=== PATIENT | female | born 1965 | race Two or more races ===

== ENCOUNTER 2025-11-07 23:09 | Inpatient (IN) | payer OTHER ==
[~2025-11-07] VITALS: Ht 154.9 cm; Wt 68.6 kg
--- NOTE | 2025-11-07 23:58 | ED.PDOC ---
History of Present Illness HPI Comments 60 year-old female presents to the ED via EMS with a chief complaint of N/V/D, headache, and weakness with hypotension as of today. Patient reports BP of 95/25 prior to ED arrival. Patient states recent stroke on September 13, 2025. Per daughter, patient has maintained a BP in the early 100s throughout the week, until today. There are no further complaints or modifying factors at this time. Patients vitals are stable. REVIEW OF SYSTEMS: General: POS Hypotension, No fever, no chills, or fatigue HEENT: No sore throat, no earache, no congestion, no neck pain. Cardiac: No chest pain. No palpitations. Lungs: No shortness of breath, no cough. GI: POS nausea, POS vomiting, POS diarrhea, no constipation, no abdominal pain : No dysuria, frequency, or urgency. No hematuria. Musculoskeletal: No joint pain , no joint swelling, no extremity edema. Skin: No rash, no itching. Neuro: POS headache, no dizziness, no weakness (And as sated in HPI) PHYSICAL EXAM: General: Awake, alert and oriented. No acute distress. Skin: Skin in warm, dry and intact. Appropriate color for ethnicity. HEENT: The head is normocephalic and atraumatic. Conjunctivae are clear without exudates or hemorrhage. Sclera is non-icteric. Eyelids are normal in appearance without swelling or lesions. Oral mucosa is pink and moist Neck: The neck is supple with normal range of motion. No JVD. Cardiac: Heart rate and rhythm are normal. No murmurs, gallops, or rubs are auscultated. Respiratory: No signs of respiratory distress. Lung sounds are clear in all lobes bilaterally without rales, rhonchi, or wheezes. Abdominal: Abdomen is soft, non-tender without distention, guarding or rigidity. Bowel sounds are present and normoactive in all four quadrants. Extremities: Lower extremities without edema. Neurological: The patient is awake, alert and oriented to person, place, and time with normal speech. Speech is clear. There is no facial asymmetry. Psychiatric: Appropriate mood and affect. Good judgement and insight. Time Seen by MD: 23:45 Reviewed Notes: Personal Development Mentor Notes, Medications, Allergies Allergies: Coded Allergies: NO KNOWN ALLERGIES (Unverified , 11/08/25) Information Source: Patient, Relative (Child), Emergency Med Personnel Mode of Arrival: EMS Severity: Moderate Timing: Hours Duration: Since onset Past Medical History PAST MEDICAL HISTORY: Anemia, CVA, Hypotension Past Medical History (Other): Cirrhosis Surgical History: Denies all surgeries Family History Family History: Reviewed,noncontributory to illness, No family hx of Cancer, No family hx of DM, No family hx of Heart juliana, No family hx of HTN, No family hx ofKidney juliana, No family hx of Liver juliana, No family hx of Lung juliana, No family hx of Stroke Social History Smoker: Non-Smoker Alcohol: Denies ETOH Use Drugs: Denies Drug Use Lives In: Home Was a procedure done? Was a procedure done?: No Differential Dx Considerations may include: Differential diagnoses considered include but are not limited to temporal arteritis, acute angle closure glaucoma, encephalitis, bacterial meningitis, carbon monoxide poisoning, posttraumatic headache, SAH, subdural hematoma, cervical artery dissection, venous sinus thrombosis, CVA, migraine headache, cluster headache, tension headache, TMJ disorder, frontal sinusitis, cervical spondylosis, intracranial mass, pituitary apoplexy. X-Ray, Labs, Meds, VS Vital Signs Date Time Temp Pulse Resp B/P (MAP) Pulse Ox O2 Delivery O2 Flow Rate FiO2 11/08/25 03:30 99 12 115/41 (65) 100 11/08/25 03:15 96 12 123/49 (73) 100 11/08/25 03:00 107 13 128/51 (76) 100 11/08/25 02:50 124/45 11/08/25 02:45 105 13 124/45 (71) 100 11/08/25 02:30 108 13 122/45 (70) 100 11/08/25 02:15 98 13 119/49 (72) 100 11/08/25 02:00 99 15 114/47 (69) 100 11/08/25 01:50 133/50 11/08/25 01:45 93 15 133/50 (77) 100 11/08/25 01:30 98 15 120/48 (72) 100 11/08/25 01:15 102 15 124/50 (74) 100 11/08/25 01:00 101 17 117/46 (69) 100 11/08/25 00:50 96/39 11/08/25 00:45 101 17 91/34 (53) 100 11/08/25 00:45 91/34 11/08/25 00:40 98/33 11/08/25 00:34 89/30 11/08/25 00:30 100 16 89/30 (49) 96 11/08/25 00:15 96 17 80/28 (45) 96 11/08/25 00:00 87 17 85/21 (42) 98 11/07/25 23:45 98.4 87 14 (47) 96 98.4 11/07/25 23:20 Nasal Cannula* 2 28 11/07/25 23:09 98.1 76 18 82/50 98 98.1 Lab Test 11/08/25 02:40 11/08/25 01:57 11/08/25 01:51 11/08/25 01:45 Range/Units Lactic Acid Level 2.5 *H 0.4-2.0 mmol/L Sodium Level 141 136-145 mmol/L Potassium Level 4.1 3.5-5.1 mmol/L Chloride Level 107 98-107 mmol/L Carbon Dioxide Level 20 20-31 mmol/L Anion Gap 14 5-15 Blood Urea Nitrogen 20 9-23 mg/dL Creatinine 1.61 H 0.550-1.02 mg/dL Glomerular Filtration Rate Calc 36 >90 mL/min BUN/Creatinine Ratio 12.4 10.0-20.0 Serum Glucose 154 H 74-106 mg/dL Calcium Level 8.3 L 8.7-10.4 mg/dL Iron Level 146 50-170 ug/dL Total Iron Binding Capacity 190 L 250-425 ug/dL Percent Iron Saturation 76.8 H 15-50 % Total Bilirubin 2.5 H 0.2-1.0 mg/dL Aspartate Amino Transferase (AST) 59 H 13-40 U/L Alanine Aminotransferase (ALT) 26 7-40 U/L Alkaline Phosphatase 173 H 46-116 U/L Total Protein 7.4 5.7-8.2 g/dL Albumin 2.6 L 3.2-4.8 g/dL Plasma/Serum Blood Alcohol < 3.0 <10 mg/dL Prothrombin Time 16.5 H 9.3-11.8 sec Prothrombin Time INR 1.63 H 0.9-1.15 Urine Color Light-yellow Yellow Urine Clarity Turbid H Clear Urine pH 6.5 5.0-9.0 Urine Specific [place] 1.007 1.001-1.035 Urine Protein Negative Negative Urine Ketones Negative Negative Urine Blood Negative Negative /uL Urine Nitrite Negative Negative Urine Bilirubin Negative Negative Urine Urobilinogen Normal Negative mg/dL Urine Leukocyte Esterase 2+ Negative /uL Urine RBC None seen 0 - 4 /hpf Urine Microscopic WBC 13 H 0-5 /HPF Urine Squamous Epithelial Cells Few <5 /hpf Urine Bacteria Few H None Seen /hpf Urine Glucose Normal Normal mg/dL Urine Opiates Screen Neg NEGATIVE Urine Fentanyl Screen Neg NEGATIVE Urine Barbiturates Screen Neg NEGATIVE Urine Phencyclidine Screen Neg NEGATIVE Urine Amphetamines Screen Neg NEGATIVE Urine Benzodiazepines Screen Neg NEGATIVE Urine Cocaine Screen Neg NEGATIVE Urine Cannabinoids Screen Neg NEGATIVE Test 11/08/25 00:25 11/07/25 23:29 Range/Units White Blood Count 10.3 4.4-10.8 10^3/uL Red Blood Count 1.59 L 4.0-5.20 10^6/uL Hemoglobin 6.0 *L 12.2-16.2 g/dL Hematocrit 17.8 L 36.0-46.0 % Mean Corpuscular Volume 112.0 H 80.0-100.0 fL Mean Corpuscular Hemoglobin 38.0 H 28.0-32.0 pg Mean Corpuscular Hemoglobin Concent 33.9 32.0-36.0 g/dL Red Cell Distribution Width 15.5 H 11.8-14.3 % Platelet Count 79 L 140-450 10^3/uL Mean Platelet Volume 9.9 6.9-10.8 fL Neutrophils (%) (Auto) 78.0 37.0-80.0 % Lymphocytes (%) (Auto) 11.4 10.0-50.0 % Monocytes (%) (Auto) 9.7 0.0-12.0 % Eosinophils (%) (Auto) 0.3 0.0-7.0 % Basophils (%) (Auto) 0.6 0.0-2.0 % Neutrophils # (Auto) 8.0 1.6-8.6 10 ^3/uL Lymphocytes # (Auto) 1.2 0.4-5.4 10 ^3/uL Monocytes # (Auto) 1.0 0-1.3 10 ^3/uL Eosinophils # (Auto) 0 0-0.8 10 ^3/uL Basophils # (Auto) 0.1 0-0.2 10 ^3/uL Nucleated Red Blood Cells 0.0 % Lactic Acid Level 4.8 *H 0.4-2.0 mmol/L Troponin I High Sensitivity 9 </=34 ng/L POC Glucose 137 H 70-106 mg/dl Microbiology Date/Time Source Procedure Growth Status 11/08/25 00:33 Blood Blood Culture - Preliminary NO GROWTH AFTER 24 HOURS OF INCUBATION. Resulted 11/08/25 00:25 Blood Blood Culture - Preliminary NO GROWTH AFTER 24 HOURS OF INCUBATION. Resulted Time of 1ST Reevaluation: 23:50 Reevaluation 1ST: Unchanged Patient Education/Counseling: Need For Follow Up Family Education/Counseling: No Family Present SEPSIS Sepsis Screen Physician Orders Chest Xray 1 View (11/07/25 23:55) Head Without Contrast (11/07/25 23:55) Blood Culture (11/07/25 23:55) Norepinephrine 8 Mg/250ml Kit (Levophed) (11/08/25 00:15) Communication Order (11/08/25 00:34) Stool Occult Blood (11/08/25 01:04) Vital Signs Date Time Temp Pulse Resp B/P (MAP) Pulse Ox O2 Delivery O2 Flow Rate FiO2 11/08/25 03:30 99 12 115/41 (65) 100 11/08/25 03:15 96 12 123/49 (73) 100 11/08/25 03:00 107 13 128/51 (76) 100 11/08/25 02:50 124/45 11/08/25 02:45 105 13 124/45 (71) 100 11/08/25 02:30 108 13 122/45 (70) 100 11/08/25 02:15 98 13 119/49 (72) 100 11/08/25 02:00 99 15 114/47 (69) 100 11/08/25 01:50 133/50 11/08/25 01:45 93 15 133/50 (77) 100 11/08/25 01:30 98 15 120/48 (72) 100 11/08/25 01:15 102 15 124/50 (74) 100 11/08/25 01:00 101 17 117/46 (69) 100 11/08/25 00:50 96/39 11/08/25 00:45 101 17 91/34 (53) 100 11/08/25 00:45 91/34 11/08/25 00:40 98/33 11/08/25 00:34 89/30 11/08/25 00:30 100 16 89/30 (49) 96 11/08/25 00:15 96 17 80/28 (45) 96 11/08/25 00:00 87 17 85/21 (42) 98 11/07/25 23:45 98.4 87 14 93/25 (47) 96 98.4 11/07/25 23:20 Nasal Cannula* 2 28 11/07/25 23:09 98.1 76 18 82/50 98 98.1 Laboratory Tests Test 11/08/25 00:25 11/08/25 02:40 Lactic Acid Level 4.8 mmol/L (0.4-2.0) *H 2.5 mmol/L (0.4-2.0) *H White Blood Count 10.3 10^3/uL (4.4-10.8) Departure 1 Departure Time of Disposition: 02:45 Impression: Primary Impression: Severe anemia Additional Impressions: Hypotension Cirrhosis Disposition: ADMITTED INPATIENT Condition: Stable Comments Patient admitted to hospitalist service for further treatment, evaluation and monitoring. Critical Care Note Critical Care Time?: No Stability Stability form required: No Heart Score Heart Score: Heart Score Response (Comments) Value History N/A 0 EKG N/A 0 Age N/A 0 Risk Factors N/A 0 Troponin N/A 0 Total 0 I personally scribed for ANNE MARIE NAVA MD ([email or web address]) on 11/07/25 at 23:58. Electronically submitted by Kaylin Owen ([email or web address]). ANNE MARIE NAVA MD Nov 07, 2025 23:58
[2025-11-08] MEDS: SODIUM CHLORIDE 0.9% 1,000 ML IV ONE ×2 (00:09→00:21)
[2025-11-08] MEDS: NAPROXEN 500 MG TAB PO ONE (00:22)
[2025-11-08] MEDS: NOREPINEPHRINE 8 MG/250ML KIT 250 ML IV SCH (00:34)
[2025-11-08 00:53] LABS: Nucleated Red Blood Cells % 0.0 %
[2025-11-08 00:55] LABS: Hematocrit 17.8 % (36.0-46.0); Mean Corpuscular Hemoglobin 38.0 pg (28.0-32.0); Mean Corpuscular Volume 112.0 fL (80.0-100.0)
[2025-11-08 01:02] LABS: Hemoglobin 6.0 g/dL (12.2-16.2)
[2025-11-08 01:20] LABS: Lactic Acid w/Reflex 4.8 mmol/L (0.4-2.0)
[2025-11-08] MEDS: VANCOMYCIN 1GM/250ML KIT 250 ML IV ONE (02:16)
[2025-11-08 02:27] LABS: Urine Protein, UAD Negative (Negative)
[2025-11-08 02:36] LABS: INR 1.63 (0.9-1.15); Prothrombin Time 16.5 sec (9.3-11.8)
--- NOTE | 2025-11-08 02:50 | DVH ---
CHEST RADIOGRAPH INDICATION: Shortness of breath TECHNIQUE: Single frontal view of the chest was obtained COMPARISON: None FINDINGS: Lines and Tubes: None Lungs: Clear Pleura: No effusion. No pneumothorax. Cardiomediastinal contours: Unremarkable Bones: Unremarkable IMPRESSION: 1. No acute disease.
--- NOTE | 2025-11-08 03:20 | DVH ---
EXAM: CT HEAD WITHOUT CONTRAST INDICATION: Headache TECHNIQUE: CT of the head without intravenous contrast. Radiation Dose : 1. Head: CT Dose: CTDI volume is 50.83 mGy. Dose-length product is 814.97 mGy*cm The dose indicators for CT are the volume Computed Tomography (CT) Dose Index (CTDIvol) and the Dose Length Product (DLP), and are measured in units of mGy and mGy-cm, respectively. These indicators are not patient dose, but values generated from the CT scanner acquisition factors. The report includes radiation exposure data for exposures received during this examination. COMPARISON: None FINDINGS: There is no evidence of acute intracranial hemorrhage, extra-axial collection, mass effect, midline shift, herniation or hydrocephalus. The ventricles, sulci and cisterns are age appropriate. The kelly-white differentiation is intact. Patchy periventricular and subcortical white matter hypoattenuation is nonspecific but may be related to small vessel ischemic disease. The visualized paranasal sinuses and mastoid air cells are clear. The surrounding soft tissues and osseous structures are unremarkable. IMPRESSION: 1. No acute intracranial abnormality. Radiation optimization: All CT scans at this facility use at least one of these dose optimization techniques: automated exposure control mA and/or kV adjustment per patient size (includes targeted exams where dose is matched to clinical indication) or iterative reconstruction.
[2025-11-08 03:35] LABS: Barbiturate Scree,Urine Neg (NEGATIVE); Benzodiazephine Screen, Urine Neg (NEGATIVE); Cannabinoid Screen, Urine Neg (NEGATIVE); Cocaine Screen, Urine Neg (NEGATIVE); Opiate Scree,Urine Neg (NEGATIVE); Phencyclidine Screen, Urine Neg (NEGATIVE)
[2025-11-08] MEDS ORDERED: ONDANSETRON HCL 4 MG/2 ML VIAL IV PRN (03:45)
[2025-11-08] MEDS ORDERED: MORPHINE SULFATE INJ 2 MG/ml SYRG IV PRN (03:45)
[2025-11-08] MEDS ORDERED: VANCOMYCIN PER PHARMACY 0 MG IV SCH (03:45)
[2025-11-08] MEDS ORDERED: NITROGLYCERIN 0.4 MG SL TAB SL PRN (03:45)
[2025-11-08] MEDS ORDERED: HYDROcodone-ACET 5/325MG TAB PO PRN (03:45)
[2025-11-08 03:58] LABS: Amphetamine Screen, Urine Neg (NEGATIVE)
[2025-11-08 04:15] VITALS: BP 120/50; PULSE 104; RESP 14; TEMP 98.4
[2025-11-08 04:35] VITALS: BP 118/53; PULSE 102; RESP 15; TEMP 98.7
--- NOTE | 2025-11-08 04:43 | DVHHP2 ---
History of Present Illness Reason for Visit: Hypotension History of Present Illness 60-year-old female presents for evaluation of hypertension. Patient reports developing a headache with generalized weakness today. She reports her blood pressure readings being in the 60s. She states having a stroke two months ago and subsequently she developed hypotension, but she normally has a baseline blood pressure in the 90s to low 100s. She also reports a history of anemia. Denies melena or hematuria. She does report burning with the urination and occasional chills. Past Medical History CVA, anemia, hypotension, liver cirrhosis Past Surgical History Denies Family History Noncontributory Smoke: Quit ALCOHOL: none (Quit drinking two months ago) Drugs: None Lives: with Family Review of Systems Review of Systems Review of systems are currently negative otherwise addressed in HPI. Allergies: Coded Allergies: NO KNOWN ALLERGIES (Unverified , 11/08/25) Medications Current Medications Medications Dose Ordered Sig/Johnathon Route Start Time Stop Time Status Last Admin Dose Admin Norepinephrine Bitartrate 250 ml @ 3.75 mls/hr Q24H IV 11/08/25 00:15 11/08/25 00:34 3.75 MLS/HR Cefepime HCl 50 ml @ 12.5 mls/hr Q12HR IV 11/08/25 10:00 UNV Vancomycin HCl 0 ml @ 0 mls/hr PER PHARMACY IV 11/08/25 03:45 UNV Acetaminophen/ Hydrocodone Bitart 1 tab Q4HP PRN PO 11/08/25 03:45 Ondansetron HCl 4 mg Q4HP PRN IV 11/08/25 03:45 Acetaminophen 650 mg Q6HP PRN PO 11/08/25 03:45 Nitroglycerin 0.4 mg Q5MINP PRN SL 11/08/25 03:45 Morphine Sulfate 2 mg Q30M PRN IV 11/08/25 03:45 Exam Vital Signs Vital Signs Date Time Temp Pulse Resp B/P (MAP) Pulse Ox O2 Delivery O2 Flow Rate FiO2 11/08/25 03:50 120/42 11/08/25 01:15 102 15 100 11/07/25 23:45 98.4 98.4 11/07/25 23:20 Nasal Cannula* 2 28 Exam Gen: 60-year-old female in mild distress Skin: Warm, dry, normal color and texture, no rash. HEENT: Normocephalic atraumatic, mucous membranes moist and pink. Neck: Cervical and supraclavicular nodes normal without enlargement, trachea is midline, thyroid gland is normal without masses. Pulmonary: Clear to auscultation and percussion bilaterally. Cardiac: Regular rate and rhythm. No murmur Abdomen: Soft, nontender, nondistended, bowel sounds present all 4 quadrants, no guarding, no rigidity, no organomegaly. Extremities: No cyanosis, clubbing, no edema Neuro: Cranial nerves II through XII grossly intact, normal affect and speech, no focal motor deficits. Labs/Xrays ORDERING PHYSICIAN: ANNE MARIE NAVA MD PROCEDURE(s): CXR1 - CHEST XRAY 1 VIEW REASON: Shortness of breath ORDER NUMBER(s): [id number], ACCESSION NUMBER(s): [id number] CHEST RADIOGRAPH INDICATION: Shortness of breath TECHNIQUE: Single frontal view of the chest was obtained COMPARISON: None FINDINGS: Lines and Tubes: None Lungs: Clear Pleura: No effusion. No pneumothorax. Cardiomediastinal contours: Unremarkable Bones: Unremarkable IMPRESSION: 1. No acute disease. RING PHYSICIAN: ANNE MARIE NAVA MD PROCEDURE(s): HWOCT - HEAD WITHOUT CONTRAST REASON: Headache ORDER NUMBER(s): [id number], ACCESSION NUMBER(s): [id number] EXAM: CT HEAD WITHOUT CONTRAST INDICATION: Headache TECHNIQUE: CT of the head without intravenous contrast. Radiation Dose : 1. Head: CT Dose: CTDI volume is 50.83 mGy. Dose-length product is 814.97 mGy*cm The dose indicators for CT are the volume Computed Tomography (CT) Dose Index (CTDIvol) and the Dose Length Product (DLP), and are measured in units of mGy and mGy-cm, respectively. These indicators are not patient dose, but values generated from the CT scanner acquisition factors. The report includes radiation exposure data for exposures received during this examination. COMPARISON: None FINDINGS: There is no evidence of acute intracranial hemorrhage, extra-axial collection, mass effect, midline shift, herniation or hydrocephalus. The ventricles, sulci and cisterns are age appropriate. The kelly-white differentiation is intact. Patchy periventricular and subcortical white matter hypoattenuation is nonspecific but may be related to small vessel ischemic disease. The visualized paranasal sinuses and mastoid air cells are clear. The surrounding soft tissues and osseous structures are unremarkable. IMPRESSION: 1. No acute intracranial abnormality. Radiation optimization: All CT scans at this facility use at least one of these dose optimization techniques: automated exposure control mA and/or kV adjustment per patient size (includes targeted exams where dose is matched to clinical indication) or iterative reconstruction. Labs Test 11/08/25 02:40 11/08/25 01:57 11/08/25 01:51 11/08/25 01:45 Range/Units Lactic Acid Level 2.5 *H 0.4-2.0 mmol/L Prothrombin Time 16.5 H 9.3-11.8 sec Prothrombin Time INR 1.63 H 0.9-1.15 Urine Color Light-yellow Yellow Urine Clarity Turbid H Clear Urine pH 6.5 5.0-9.0 Urine Specific [place] 1.007 1.001-1.035 Urine Protein Negative Negative Urine Ketones Negative Negative Urine Blood Negative Negative /uL Urine Nitrite Negative Negative Urine Bilirubin Negative Negative Urine Urobilinogen Normal Negative mg/dL Urine Leukocyte Esterase 2+ Negative /uL Urine RBC None seen 0 - 4 /hpf Urine Microscopic WBC 13 H 0-5 /HPF Urine Squamous Epithelial Cells Few <5 /hpf Urine Bacteria Few H None Seen /hpf Urine Glucose Normal Normal mg/dL Urine Opiates Screen Neg NEGATIVE Urine Fentanyl Screen Neg NEGATIVE Urine Barbiturates Screen Neg NEGATIVE Urine Phencyclidine Screen Neg NEGATIVE Urine Amphetamines Screen Neg NEGATIVE Urine Benzodiazepines Screen Neg NEGATIVE Urine Cocaine Screen Neg NEGATIVE Urine Cannabinoids Screen Neg NEGATIVE Test 11/08/25 00:25 11/07/25 23:29 Range/Units White Blood Count 10.3 4.4-10.8 10^3/uL Red Blood Count 1.59 L 4.0-5.20 10^6/uL Hemoglobin 6.0 *L 12.2-16.2 g/dL Hematocrit 17.8 L 36.0-46.0 % Mean Corpuscular Volume 112.0 H 80.0-100.0 fL Mean Corpuscular Hemoglobin 38.0 H 28.0-32.0 pg Mean Corpuscular Hemoglobin Concent 33.9 32.0-36.0 g/dL Red Cell Distribution Width 15.5 H 11.8-14.3 % Platelet Count 79 L 140-450 10^3/uL Mean Platelet Volume 9.9 6.9-10.8 fL Neutrophils (%) (Auto) 78.0 37.0-80.0 % Lymphocytes (%) (Auto) 11.4 10.0-50.0 % Monocytes (%) (Auto) 9.7 0.0-12.0 % Eosinophils (%) (Auto) 0.3 0.0-7.0 % Basophils (%) (Auto) 0.6 0.0-2.0 % Neutrophils # (Auto) 8.0 1.6-8.6 10 ^3/uL Lymphocytes # (Auto) 1.2 0.4-5.4 10 ^3/uL Monocytes # (Auto) 1.0 0-1.3 10 ^3/uL Eosinophils # (Auto) 0 0-0.8 10 ^3/uL Basophils # (Auto) 0.1 0-0.2 10 ^3/uL Nucleated Red Blood Cells 0.0 % Troponin I High Sensitivity 9 </=34 ng/L POC Glucose 137 H 70-106 mg/dl SEPSIS Sepsis Screen Date sepsis recognized/suspect: Nov 07, 2025 Time Sepsis recognized/suspect: 2319 Recent Procedure: No On Antibiotic Therapy: No Respiratory Rate >20: No Heart Rate >90: No Temp<36 C (96.8 F) or >38.3 C: No SBP <90 or MAP <65 mmHG: Yes New Acute Mental Status Change: No Is the patient on CPAP, BIPAP,: No Physician Orders Comprehensive Metabolic Panel (11/07/25 23:55) Chest Xray 1 View (11/07/25 23:55) Head Without Contrast (11/07/25 23:55) Blood Alcohol (11/07/25 23:55) Blood Culture (11/07/25 23:55) Norepinephrine 8 Mg/250ml Kit (Levophed) (11/08/25 00:15) Communication Order (11/08/25 00:34) Stool Occult Blood (11/08/25 01:04) Urine Bacterial Culture (11/08/25 03:44) Cefepime 1gm/50ml (Maxipime 1gm/50ml) (11/08/25 10:00) Vancomycin Per Pharmacy (11/08/25 03:45) Admit (11/08/25 03:44) Hydrocodone-Acet 5/325mg Tab ([place] /32 (11/08/25 03:45) Ondansetron Hcl (Zofran) (11/08/25 03:45) Cardiac Diet-2gna,Lofat,Lochol (11/08/25 Breakfast) Condition: Critical (11/08/25 03:44) Acetaminophen Tablet (Tylenol Tablet) (11/08/25 03:45) Bedrest With Bathroom Privileg (11/08/25 03:44) Nitroglycerin Sublingual (Ntrostat Subli (11/08/25 03:45) Morphine Sulfate Injection (11/08/25 03:45) Stat Ekg For Chest Pain (11/08/25 03:44) Notify Md Of Changes From Base (11/08/25 03:44) Line Installer Trolley For 24 Hours (11/08/25 03:44) Emergency Dysrhythmia Protocol (11/08/25 03:44) Rhythm Strips Once Every Shift (11/08/25 03:44) Oxygen By Nasal Cannula (11/08/25 03:44) Iron Panel (11/08/25 04:38) Vital Signs Date Time Temp Pulse Resp B/P (MAP) Pulse Ox O2 Delivery O2 Flow Rate FiO2 11/08/25 03:50 120/42 11/08/25 02:50 124/45 11/08/25 01:50 133/50 11/08/25 01:15 102 15 124/50 (74) 100 11/08/25 01:00 101 17 117/46 (69) 100 11/08/25 00:50 96/39 11/08/25 00:45 101 17 91/34 (53) 100 11/08/25 00:45 91/34 11/08/25 00:40 98/33 11/08/25 00:34 89/30 11/08/25 00:30 100 16 89/30 (49) 96 11/08/25 00:15 96 17 80/28 (45) 96 11/08/25 00:00 87 17 85/21 (42) 98 11/07/25 23:45 98.4 87 14 93/25 (47) 96 98.4 11/07/25 23:20 Nasal Cannula* 2 28 11/07/25 23:09 98.1 76 18 82/50 98 98.1 Laboratory Tests Test 11/08/25 00:25 11/08/25 02:40 Lactic Acid Level 4.8 mmol/L (0.4-2.0) *H 2.5 mmol/L (0.4-2.0) *H White Blood Count 10.3 10^3/uL (4.4-10.8) Medications Medications Dose Ordered Sig/Johnathon Route Start Time Stop Time Status Last Admin Dose Admin Ceftriaxone Sodium 50 ml @ 100 mls/hr ONCE ONCE IV 11/08/25 01:30 11/08/25 01:59 DC 11/08/25 01:35 100 MLS/HR Naproxen 500 mg ONCE ONCE PO 11/08/25 00:15 11/08/25 00:17 DC 11/08/25 00:22 500 MG Norepinephrine Bitartrate 250 ml @ 3.75 mls/hr Q24H IV 11/08/25 00:15 11/08/25 00:34 3.75 MLS/HR Sodium Chloride 1,000 ml @ 1,000 mls/hr Q1H ONCE IV 11/08/25 00:00 11/08/25 00:59 DC 11/08/25 00:09 1,000 MLS/HR Sodium Chloride 1,000 ml @ 1,000 mls/hr Q1H ONCE IV 11/08/25 00:15 11/08/25 01:14 DC 11/08/25 00:21 1,000 MLS/HR Vancomycin HCl 250 ml @ 250 mls/hr ONCE ONCE IV 11/08/25 01:30 11/08/25 02:29 DC 11/08/25 02:16 250 MLS/HR Assessment/Plan Assessment/Plan Assessment Sepsis Anemia History of CVA Urinary tract infection Plan Admit the patient to ICU to the hospitalist Transfuse 1 unit of packed red cells Cefepime/vancomycin Blood cultures pending Continue treatment per orders Plan discussed with: Patient My Orders Orders - MARINE ISAACS AGACNP Procedure Category Date Status Time Urine Bacterial [place] 11/08/25 In Process Culture 03:44 Cefepime 1gm/50ml [facility] 11/08/25 Pending (Maxipime 1gm/50ml) 10:00 Vancomycin Per [facility] 11/08/25 Pending Pharmacy 03:45 Admit ADMIT 11/08/25 Transmitted 03:44 Hydrocodone-Acet [facility] 11/08/25 In Process 5/325mg Tab ([place] 03:45 Ondansetron Hcl [facility] 11/08/25 In Process (Zofran) 03:45 Cardiac DIET 11/08/25 Transmitted Diet-2gna,Lofat,Lochol Breakfast Condition: Critical [place] 11/08/25 In Process 03:44 Acetaminophen Tablet [facility] 11/08/25 In Process (Tylenol Tablet) 03:45 Bedrest With Bathroom [facility] 11/08/25 In Process Privileg 03:44 Nitroglycerin [facility] 11/08/25 In Process Sublingual (Ntrostat 03:45 Morphine Sulfate [facility] 11/08/25 In Process Injection 03:45 Stat Ekg For Chest [facility] 11/08/25 In Process Pain 03:44 Notify Md Of Changes [facility] 11/08/25 In Process From Base 03:44 Line Installer Trolley For [facility] 11/08/25 In Process 24 Hours 03:44 Emergency Dysrhythmia [facility] 11/08/25 In Process Protocol 03:44 Rhythm Strips Once [facility] 11/08/25 In Process Every Shift 03:44 Oxygen By Nasal RT 11/08/25 Transmitted Cannula 03:44 Iron Panel LAB 11/08/25 Transmitted 04:38 Date of Service: Nov 08, 2025 Billing Provider: MARINE ISAACS Common Visit Codes: [id number] CARE 30-74 MIN MARINE ISAACS Nov 08, 2025 04:43
[2025-11-08 04:46] LABS: Alanine Aminotransferase 26 U/L (7-40); Anion Gap 14 (5-15); BUN/Creatinine Ratio 12.4 (10.0-20.0); Blood Urea Nitrogen 20 mg/dL (9-23); Chloride 107 mmol/L (98-107); Potassium 4.1 mmol/L (3.5-5.1); Sodium 141 mmol/L (136-145); Total Protein 7.4 g/dL (5.7-8.2)
[2025-11-08 04:50] LABS: Albumin 2.6 g/dL (3.2-4.8); Alkaline Phosphatase 173 U/L (46-116); Bilirubin, Total 2.5 mg/dL (0.2-1.0); Calcium 8.3 mg/dL (8.7-10.4); Carbon Dioxide 20 mmol/L (20-31); Glucose 154 mg/dL (74-106)
[2025-11-08] MEDS: CEFEPIME 1GM/50ML 50 ML IV ONE (05:22)
[2025-11-08 06:09] LABS: Iron 146.0 ug/dL (50-170)
[2025-11-08 06:21] LABS: Total Iron Binding Capacity 190.0 ug/dL (250-425)
[2025-11-08 06:36] VITALS: BP 108/42; PULSE 77; RESP 14; TEMP 98.1
[2025-11-08 07:50] VITALS: PULSE 84; RESP 12; O2SAT 98
[2025-11-08 10:11] LABS: Hematocrit 32.2 % (36.0-46.0); Hemoglobin 10.9 g/dL (12.2-16.2)
[2025-11-08 11:07] LABS: Ferritin 206.9 ng/mL (10-291)
[2025-11-08] MEDS: CEFEPIME 1GM/50ML 50 ML IV SCH (11:10)
[2025-11-08 13:09] LABS: Hepatitis B Surface Antigen Negative (Negative); Hepatitis C Antibody Negative (Negative)
--- NOTE | 2025-11-08 13:21 | DVHPNRES ---
Progress Note Date Seen: Nov 08, 2025 Resident Creating Document: SHELBI ALBERTS RESIDENT Medical Necessity Reason Pt with a Central, PICC or Fol: No Subjective Review of Systems This is a 60-year-old female with past medical history of hemorrhagic stroke in August 2025, liver cirrhosis, anemia, presented to the ER with chief complain of dizziness, vomiting, hypotension since 1 day. Patient is a [place]an-speaking female, utilized undercoater for history taking. The patient started complaining of dizziness, described as "everything around me was spinning, accompanied with decreased/division. She was diagnosed with stroke in August this year and was concerned about a similar episode Patient's daughter measured her blood pressure during the episode, which was low. She also complained of vomiting and diarrhea with 1 day onset, associated with burning abdominal pain. She reported vomiting hourly, without hematemesis. Patient initially denied having diarrhea but on further probing she reported 4 episodes of diarrhea. Stools are described as soft, complained of small amount of blood seen on stool and on the toilet paper. She also reported vague history of dysuria and burning micturition 4 days ago. Patient is A&O x4 but somewhat of a poor historian. She denies loss of consciousness, weakness, fever, chills. Patient has significant past medical history of liver cirrhosis, currently not following up with a specialist due to insurance issues. She underwent a colonoscopy in the past, according to the patient the colonoscopy did not show acute abnormality. Patient had stroke in August 2025, with some residual generalized weakness. Patient denies recent travel, history of cancer, hepatitis. History corroborated with daughter, who added that the patient has recurrent UTIs in the past and her last colonoscopy was more than 2 years back. Patient's vitals show tachycardia and hypotension on arrival. Her labs revealed macrocytic anemia, thrombocytopenia, albumin. Labs were significant for elevated total bilirubin, AST, ALP, creatinine and lactic acid. Coagulation profile showed elevated PT, INR. Her urine analysis was positive for UTI. Toxicology screen and Hepatitis panel came out negative. CT head shows no acute abnormality. Previous hospitalization: August 2025 in a hospital in [facility] for stroke PMHx: Hemorrhagic stroke, liver cirrhosis, anemia PSHx: None reported Family history: Multiple family members with diabetes mellitus Social history: Quit alcohol (used for 30 years) in August 2025, reported using 5 beers occasionally (consumed weekly/monthly), never smoker, denies drug use. Lives in daughter. Uses walker for ambulation since August this year Home medication: Famotidine, furosemide, spironolactone, MiraLax, iron. Medication list obtained from daughter ([place] [phone]). Allergic history: No reported allergies ROS: Constitutional: Denies weight loss, fever and chills. HEENT: Denies changes in vision and hearing. Respiratory: Denies shortness of breath and cough Cardiovascular: Denies chest discomfort or palpitations GI: Diarrhea, vomiting, 1 episode of bloody stools. Denies abdominal pain, nausea. : Dysuria and urinary frequency. Musculoskeletal: Denies myalgias and joint pain Skin: Denies rash and pruritus. Neurological: Dizziness. Denies headache, vision or hearing problems [id number]: Patient was examined at bedside. Patient reports improvement of symptoms. She is requiring vasopressor support intermittently to maintain her blood pressure. He received 1 bag of packed RBCs for hemoglobin of 6, monitoring H&H. In context of patient's cirrhosis, we will obtain a CT abdomen and consult GI. Objective vital signs Vital Sign Date Time Temp Pulse Resp B/P (MAP) Pulse Ox O2 Delivery O2 Flow Rate FiO2 11/08/25 12:16 73 12 93/31 (51) 98 11/08/25 10:18 99.0 99.0 11/08/25 07:50 Room Air* 1 N/A Nasal Cannula* Total Intake and Output 11/07/25 11/07/25 11/08/25 15:00 23:00 07:00 Intake Total 950 ml Balance 950 ml medications Current Medications Medications Dose Ordered Sig/Johnathon Route Start Time Stop Time Status Last Admin Dose Admin Norepinephrine Bitartrate 250 ml @ 3.75 mls/hr Q24H IV 11/08/25 00:15 11/08/25 00:34 3.75 MLS/HR Cefepime HCl 50 ml @ 12.5 mls/hr Q12HR IV 11/08/25 10:00 11/08/25 11:10 12.5 MLS/HR Vancomycin HCl 0 ml @ 0 mls/hr PER PHARMACY IV 11/08/25 03:45 Acetaminophen/ Hydrocodone Bitart 1 tab Q4HP PRN PO 11/08/25 03:45 Ondansetron HCl 4 mg Q4HP PRN IV 11/08/25 03:45 Acetaminophen 650 mg Q6HP PRN PO 11/08/25 03:45 Nitroglycerin 0.4 mg Q5MINP PRN SL 11/08/25 03:45 Morphine Sulfate 2 mg Q30M PRN IV 11/08/25 03:45 Examination General: Patient alert and oriented in person, place and time. Patient following commands. HEENT: Scleral icterus. Normocephalic, atraumatic, moist mucous membranes Respiratory/pulmonary: Clear lungs bilaterally, vesicular murmurs present in almost all lung yao, no associated crackles or wheezes. Cardiovascular: Tachycardia. Normal heart sounds S1 and S2 with no associated murmurs Abdomen: Hepatomegaly. Abdomen nondistended, there is no pain to palpation in any of the abdominal quadrants, no palpable masses. Extremities: There is no peripheral edema present at the lower extremities. Skin: No rashes or pruritus, there is no sacral edema present at this time. Neurological: Intact cranial nerves with no focal neurologic deficits, normal motor and sensory strength. laboratory and microbiology Laboratory Tests 11/08/25 10:00 11/08/25 01:57 11/08/25 00:25 Test 11/08/25 01:57 Range/Units Serum Glucose 154 H 74-106 mg/dL Problem List/Assessment/Plan Problem List/Assessment/Plan Neurology # History of hemorrhagic shock CT head negative for acute abnormality Cardiovascular # Hypovolemic shock # GI hemorrhage, possible Blood pressure maintained on Levophed Received 1 bag of pRBCs Holding off DVT prophylaxis with Lovenox, SCD ordered GI consulted for possible EGD SOB ordered Monitor H&H for possible transfusion IV Protonix b.i.d., Carafate 1 g p.o. q.i.d. Gastrointestinal # GI hemorrhage, possible # Possible variceal bleed Blood pressure maintained on Levophed Received 1 bag of pRBCs Holding off DVT prophylaxis with Lovenox, SCD ordered GI consulted, recommended EGD on Thursday SOB ordered CT abdomen shows cirrhosis with sequela of portal hypertension including upper abdominal varices. Diffuse gallbladder wall thickening without significant distention with possible cholelithiasis. Monitor H&H for possible transfusion IV Protonix b.i.d., Carafate 1 g p.o. q.i.d. # Acute infectious colitis possible Started on IV Flagyl q.8 # Liver cirrhosis # Portal hypertension, possible # Liver cirrhosis secondary to alcohol and fatty liver disease # Cholelithiasis MELD score 20. Child Knowles score 8 Ammonia levels WNL Genitourinary # Possible septic shock due to Complicated UTI U/A: positive for UTI Blood culture, urine culture ordered Continue IV cefepime Low salt diet, maintain hydration Repeat BMP Infectious disease # Possible septic shock due to Complicated UTI # Acute gastroenteritis, possible Started on IV Flagyl q.8 Continue IV cefepime Hematology/oncology # Macrocytic anemia, due to liver disease # Thrombocytopenia Continue CBC monitoring Peptic ulcer prophylaxis: Protonix DVT prophylaxis: SCD Critical care time 61 minutes excluding procedure. Code status discussed greater than 20 minutes: Full CODE STATUS. Family at bedside explained about the condition of the patient Plan discussed with Dr. Ohara Plan discussed with: Patient, Daughter, Other (nurses) My Orders My Orders Orders - SHELBI ALBERTS Procedure Category Date Status Time Acute Hepatitis Panel LAB 11/08/25 In Process 09:57 CC Plasma Assessment Blood Product Administration S: 0420 Date of Service: Nov 08, 2025 Billing Provider: MARINE OHARA MD Common Visit Codes: 57039-SKERLD[facility] CARE 30-74 MIN SHELBI ALBERTS Nov 08, 2025 13:21 MARINE OHARA MD Nov 09, 2025 11:58
[2025-11-08] MEDS: PANTOPRAZOLE 40 MG/10 ML VIAL INJ IV ONE (13:26)
[2025-11-08 14:48] LABS: Hematocrit 32.7 % (36.0-46.0); Hemoglobin 11.2 g/dL (12.2-16.2)
--- NOTE | 2025-11-08 15:53 | DVH ---
EXAM: CT CT AB PEL WO CON-NO ORAL OR IV HISTORY: liver cirrhosis r/o structural abdominal d/o Comparison Study: None Exam Date: 11/08/2025 02:49 PM Radiation Dose Information: CT Dose: CTDI volume is 8.6 mGy. Dose-length product is 437 mGy*cm TECHNIQUE: Multidetector CT of the abdomen and pelvis was performed. Imaging was performed without IV contrast. Axial, coronal and sagittal multiplanar reformats were obtained from the axial data set by the technologist. FINDINGS: Lack of intravenous contrast compromises evaluation of perfusion and for isodense lesions. Lower chest: Bibasilar atelectasis/scarring. Liver: Diffusely nodular in contour Biliary system: Diffuse gallbladder wall thickening without significant distention. Possible Underlying stones. Spleen: Unremarkable Pancreas: Unremarkable. Adrenals: Unremarkable. Kidneys and ureters: No hydronephrosis Bowel: No obstruction. Mild hyperdensity in the calices may represnt early medullary nephrocalcinosis. Bladder: Unremarkable Reproductive organs: No abnormal mass. Lymph nodes: Unremarkable. Peritoneum: Unremarkable Vessels: Patency not evaluated on this noncontrast study. Enlarged gastroesophageal and upper abdominal varices. Bones and soft tissue: No aggressive osseous lesion IMPRESSION: Cirrhosis with sequela of portal hypertension including upper abdominal varices. No significant ascites. Diffuse gallbladder wall thickening without significant distention with possible cholelithiasis. This is favored to be reactive. If there is concern for acute cholecystitis, HIDA scan can be obtained for further evaluation.
--- NOTE | 2025-11-08 16:27 | DVHCONRES ---
Date Seen: Nov 08, 2025 Resident Creating Document: SUZANNA SCOTT RESIDENT Reason for Consultation Evaluation of possible gastrointestinal bleeding History of Present Illness 60-year-old female with liver cirrhosis secondary to alcohol use and fatty liver disease, history of cerebrovascular accident in August 2025, and chronic anemia, admitted for hypotension associated with headache, nausea, vomiting, and diarrhea. GI was consulted due to concern for possible gastrointestinal bleeding in the setting of severe anemia. The patient is a poor historian and is unable to recall details of a prior EGD performed in August 2025, reportedly without acute findings. She reports intermittent blood on wiping with known history of hemorrhoids. She quit alcohol use in August 2025. On admission, she required intermittent vasopressor support and is currently fully alert and oriented. PMHx Liver cirrhosis secondary to alcohol use and metabolic-associated fatty liver disease, cerebrovascular accident August 2025, chronic anemia Allergies Not documented Social History Former alcohol use, quit August 2025 CBC: Hb 6 --> 10.9 --> 11.2 CMP: Total bilirubin 2.5, alkaline phosphatase 173, albumin 2.6, sodium 141 Coagulation: PT 16.5, INR 1.53 Vitamin B12: Normal Serologies: Hepatitis B negative Toxicology: Negative, no alcohol detected Blood cultures: Pending CT abdomen/pelvis: Cirrhosis with sequelae of portal hypertension and upper abdominal varices, gastric wall thickening without significant distension, possible cholelithiasis Allergies: Coded Allergies: NO KNOWN ALLERGIES (Unverified , 11/08/25) Current Medications Current Medications Medications (Trade) Dose Ordered Sig/Johnathon Route PRN Reason Start Time Stop Time Status Last Admin Norepinephrine Bitartrate 250 ml @ 3.75 mls/hr Q24H IV 11/08/25 00:15 11/08/25 00:34 Cefepime HCl 50 ml @ 12.5 mls/hr Q12HR IV 11/08/25 10:00 11/08/25 11:10 Vancomycin HCl 0 ml @ 0 mls/hr PER PHARMACY IV 11/08/25 03:45 11/08/25 14:14 DC Acetaminophen/ Hydrocodone Bitart ([place] 5/325MG Tab) 1 tab Q4HP PRN PO MODERATE PAIN (4-6 PAIN SCALE) 11/08/25 03:45 Ondansetron HCl (Zofran) 4 mg Q4HP PRN IV NAUSEA / VOMITING 11/08/25 03:45 Acetaminophen (Tylenol Tablet) 650 mg Q6HP PRN PO PAIN SCALE 1-3 OR TEMP>100.4 11/08/25 03:45 Nitroglycerin (Ntrostat Sublingual) 0.4 mg Q5MINP PRN SL FOR CHEST PAIN 11/08/25 03:45 Morphine Sulfate 2 mg Q30M PRN IV FOR CHEST PAIN 11/08/25 03:45 Pantoprazole Sodium (Protonix) 40 mg DAILY IV 11/09/25 10:00 Vital Signs Vital Signs Date Time Temp Pulse Resp B/P (MAP) Pulse Ox O2 Delivery O2 Flow Rate FiO2 11/08/25 14:30 86 11 107/41 (63) 97 11/08/25 14:15 97.7 97.7 11/08/25 07:50 Room Air* 1 N/A Nasal Cannula* Labs/Diagnostic Data Labs Test 11/08/25 14:43 11/08/25 11:05 11/08/25 10:11 11/08/25 10:00 Range/Units Hemoglobin 11.2 L 12.2-16.2 g/dL Hematocrit 32.7 L 36.0-46.0 % Lactic Acid Level 1.2 0.4-2.0 mmol/L Ammonia 28 11-32 umol/L Ferritin 206.9 10-291 ng/mL Vitamin B12 Level 1349 H 211-911 pg/mL Folic Acid 21.57 >5.38 ng/mL Hepatitis A IgM Antibody Negative Hepatitis B Surface Antigen Negative Negative Hepatitis B Core IgM Antibody Negative Negative Hepatitis C Antibody Negative Negative Test 11/08/25 01:57 11/08/25 01:51 11/08/25 01:45 11/08/25 00:25 Range/Units Sodium Level 141 136-145 mmol/L Potassium Level 4.1 3.5-5.1 mmol/L Chloride Level 107 98-107 mmol/L Carbon Dioxide Level 20 20-31 mmol/L Anion Gap 14 5-15 Blood Urea Nitrogen 20 9-23 mg/dL Creatinine 1.61 H 0.550-1.02 mg/dL Glomerular Filtration Rate Calc 36 >90 mL/min BUN/Creatinine Ratio 12.4 10.0-20.0 Serum Glucose 154 H 74-106 mg/dL Calcium Level 8.3 L 8.7-10.4 mg/dL Iron Level 146 50-170 ug/dL Total Iron Binding Capacity 190 L 250-425 ug/dL Percent Iron Saturation 76.8 H 15-50 % Total Bilirubin 2.5 H 0.2-1.0 mg/dL Aspartate Amino Transferase (AST) 59 H 13-40 U/L Alanine Aminotransferase (ALT) 26 7-40 U/L Alkaline Phosphatase 173 H 46-116 U/L Total Protein 7.4 5.7-8.2 g/dL Albumin 2.6 L 3.2-4.8 g/dL Plasma/Serum Blood Alcohol < 3.0 <10 mg/dL Prothrombin Time 16.5 H 9.3-11.8 sec Prothrombin Time INR 1.63 H 0.9-1.15 Urine Color Light-yellow Yellow Urine Clarity Turbid H Clear Urine pH 6.5 5.0-9.0 Urine Specific Kelly 1.007 1.001-1.035 Urine Protein Negative Negative Urine Ketones Negative Negative Urine Blood Negative Negative /uL Urine Nitrite Negative Negative Urine Bilirubin Negative Negative Urine Urobilinogen Normal Negative mg/dL Urine Leukocyte Esterase 2+ Negative /uL Urine RBC None seen 0 - 4 /hpf Urine Microscopic WBC 13 H 0-5 /HPF Urine Squamous Epithelial Cells Few <5 /hpf Urine Bacteria Few H None Seen /hpf Urine Glucose Normal Normal mg/dL Urine Opiates Screen Neg NEGATIVE Urine Fentanyl Screen Neg NEGATIVE Urine Barbiturates Screen Neg NEGATIVE Urine Phencyclidine Screen Neg NEGATIVE Urine Amphetamines Screen Neg NEGATIVE Urine Benzodiazepines Screen Neg NEGATIVE Urine Cocaine Screen Neg NEGATIVE Urine Cannabinoids Screen Neg NEGATIVE White Blood Count 10.3 4.4-10.8 10^3/uL Red Blood Count 1.59 L 4.0-5.20 10^6/uL Mean Corpuscular Volume 112.0 H 80.0-100.0 fL Mean Corpuscular Hemoglobin 38.0 H 28.0-32.0 pg Mean Corpuscular Hemoglobin Concent 33.9 32.0-36.0 g/dL Red Cell Distribution Width 15.5 H 11.8-14.3 % Platelet Count 79 L 140-450 10^3/uL Mean Platelet Volume 9.9 6.9-10.8 fL Neutrophils (%) (Auto) 78.0 37.0-80.0 % Lymphocytes (%) (Auto) 11.4 10.0-50.0 % Monocytes (%) (Auto) 9.7 0.0-12.0 % Eosinophils (%) (Auto) 0.3 0.0-7.0 % Basophils (%) (Auto) 0.6 0.0-2.0 % Neutrophils # (Auto) 8.0 1.6-8.6 10 ^3/uL Lymphocytes # (Auto) 1.2 0.4-5.4 10 ^3/uL Monocytes # (Auto) 1.0 0-1.3 10 ^3/uL Eosinophils # (Auto) 0 0-0.8 10 ^3/uL Basophils # (Auto) 0.1 0-0.2 10 ^3/uL Nucleated Red Blood Cells 0.0 % Troponin I High Sensitivity 9 </=34 ng/L Test 11/07/25 23:29 Range/Units POC Glucose 137 H 70-106 mg/dl Assessment #Gastrointestinal bleeding #Portal hypertension #Upper varices #Possible colitis # Liver cirrhosis secondary to alcohol use and fatty liver disease # Chronic anemia #Cholelithiasis Low sodium diet Suspected upper gastrointestinal source in the setting of cirrhosis, portal hypertension, CT evidence of varices, and severe anemia. Antibiotics: Continue cefepime and vancomycin, added metronidazole Procedures: Plan for EGD on Thursday Transfusion: Maintain hemoglobin >7 g/dL Stool studies ordered Protonix IV BID Sucralfate liquid Vitamin K Syl Discriminant Function 27.8 no need of steroids No need of procedures regarding of cholelithiasis due to preoperative high risk Case discussed with Dr Valencia Plan discussed with: Patient, Other (rn) SUZANNA SCOTT RESIDENT Nov 08, 2025 16:27
[2025-11-08] MEDS: phytonadione 5 MG in SODIUM CHL 0.9% 50 ML IV ONE (17:22)
[2025-11-08] MEDS: SUCRALFATE 1 GM/10 ML ORAL SUSP PO SCH (17:35)
[2025-11-08 20:00] VITALS: PULSE 76; RESP 12; O2SAT 96
[2025-11-08] MEDS: PANTOPRAZOLE 40 MG/10 ML VIAL INJ IV SCH (22:23)
[2025-11-08 23:00] VITALS: BP 110/45; PULSE 78; RESP 14; O2SAT 98
[2025-11-09] VITALS (23 sets, daily range): BP systolic 94–126; BP diastolic 37–60; PULSE 69–100; RESP 9–20; TEMP 98–98.6; O2SAT 94–99
[2025-11-09 05:47] LABS: Hematocrit 31.2 % (36.0-46.0); Hemoglobin 10.7 g/dL (12.2-16.2); Mean Corpuscular Hemoglobin 35.1 pg (28.0-32.0); Mean Corpuscular Volume 102.7 fL (80.0-100.0); Nucleated Red Blood Cells % 0.3 %
[2025-11-09 06:13] LABS: Alanine Aminotransferase 30 U/L (7-40); Anion Gap 10 (5-15); BUN/Creatinine Ratio 9.4 (10.0-20.0); Blood Urea Nitrogen 12 mg/dL (9-23); Carbon Dioxide 22 mmol/L (20-31); Glucose 94 mg/dL (74-106); Potassium 4.0 mmol/L (3.5-5.1); Sodium 141 mmol/L (136-145); Total Protein 6.4 g/dL (5.7-8.2)
[2025-11-09 06:14] LABS: Albumin 2.0 g/dL (3.2-4.8); Alkaline Phosphatase 147 U/L (46-116); Bilirubin, Total 2.8 mg/dL (0.2-1.0); Calcium 8.2 mg/dL (8.7-10.4); Chloride 109 mmol/L (98-107)
[2025-11-09] MEDS ORDERED: PANTOPRAZOLE 40 MG/10 ML VIAL INJ IV SCH (10:00)
--- NOTE | 2025-11-09 10:40 | DVHPN2 ---
Progress Note Date Seen: Nov 09, 2025 Resident Creating Document: SUZANNA SCOTT RESIDENT Medical Necessity Reason Pt with a Central, PICC or Fol: No Subjective Review of Systems 60-year-old female with liver cirrhosis secondary to alcohol use and fatty liver disease, history of cerebrovascular accident in August 2025, and chronic anemia, admitted for hypotension associated with headache, nausea, vomiting, and diarrhea. GI was consulted due to concern for possible gastrointestinal bleeding in the setting of severe anemia. The patient is a poor historian and is unable to recall details of a prior EGD performed in August 2025, reportedly without acute findings. She reports intermittent blood on wiping with known history of hemorrhoids. She quit alcohol use in August 2025. On admission, she required intermittent vasopressor support and is currently fully alert and oriented. PMHx Liver cirrhosis secondary to alcohol use and metabolic-associated fatty liver disease, cerebrovascular accident August 2025, chronic anemia 11/09/25: Today hemoglobin stable, rectal exam performed no rectal bleeding, possible EGD tomorrow keep NPO midnight Objective vital signs Vital Sign Date Time Temp Pulse Resp B/P (MAP) Pulse Ox O2 Delivery O2 Flow Rate FiO2 11/09/25 08:00 76 11/09/25 08:00 12 95 Room Air* 0 21 11/09/25 08:00 98.2 126/52 (76) 98.2 Total Intake and Output 11/08/25 11/08/25 11/09/25 15:00 23:00 07:00 Intake Total 37.5 ml 12.5 ml 450.0 ml Balance 37.5 ml 12.5 ml 450.0 ml medications Current Medications Medications Dose Ordered Sig/Johnathon Route Start Time Stop Time Status Last Admin Dose Admin Norepinephrine Bitartrate 250 ml @ 3.75 mls/hr Q24H IV 11/08/25 00:15 11/08/25 00:34 3.75 MLS/HR Cefepime HCl 50 ml @ 12.5 mls/hr Q12HR IV 11/08/25 10:00 11/09/25 07:44 12.5 MLS/HR Acetaminophen/ Hydrocodone Bitart 1 tab Q4HP PRN PO 11/08/25 03:45 Ondansetron HCl 4 mg Q4HP PRN IV 11/08/25 03:45 Acetaminophen 650 mg Q6HP PRN PO 11/08/25 03:45 Nitroglycerin 0.4 mg Q5MINP PRN SL 11/08/25 03:45 Morphine Sulfate 2 mg Q30M PRN IV 11/08/25 03:45 Pantoprazole Sodium 40 mg BID IV 11/08/25 22:00 11/09/25 07:43 40 MG Sucralfate 1 gm QID@0600,1130,1700,2200 PO 11/08/25 17:00 11/09/25 05:33 1 GM Metronidazole 100 ml @ 100 mls/hr Q8HR IV 11/08/25 22:00 11/09/25 05:33 100 MLS/HR Examination General: Patient alert and oriented in person, place and time. Patient following commands. HEENT: Scleral icterus. Normocephalic, atraumatic, moist mucous membranes Respiratory/pulmonary: Clear lungs bilaterally, vesicular murmurs present in almost all lung yao, no associated crackles or wheezes. Cardiovascular: Tachycardia. Normal heart sounds S1 and S2 with no associated murmurs Abdomen: Hepatomegaly. Abdomen nondistended, there is no pain to palpation in any of the abdominal quadrants, no palpable masses. Extremities: There is no peripheral edema present at the lower extremities. Skin: No rashes or pruritus, there is no sacral edema present at this time. Neurological: Intact cranial nerves with no focal neurologic deficits, normal motor and sensory strength. laboratory and microbiology Laboratory Tests 11/09/25 05:14 Test 11/09/25 05:14 Range/Units Serum Glucose 94 74-106 mg/dL Microbiology Date/Time Source Procedure Growth Status 11/08/25 01:45 Voided Urine Urine Culture - Preliminary Resulted 11/08/25 00:33 Blood Blood Culture - Preliminary NO GROWTH AFTER 24 HOURS OF INCUBATION. Resulted Problem List/Assessment/Plan Problem List/Assessment/Plan #Gastrointestinal bleeding #Portal hypertension #Upper varices #Possible colitis # Liver cirrhosis secondary to alcohol use and fatty liver disease # Chronic anemia #Cholelithiasis Low sodium diet Suspected upper gastrointestinal source in the setting of cirrhosis, portal hypertension, CT evidence of varices, and severe anemia. Antibiotics: Continue cefepime and vancomycin and metronidazole Procedures: Plan for EGD tomorrow NPO after midnight Transfusion: Maintain hemoglobin >7 g/dL Stool studies ordered Protonix IV BID Sucralfate liquid Vitamin K Syl Discriminant Function 27.8 no need of steroids No need of procedures regarding of cholelithiasis due to preoperative high risk Case discussed with Dr Valencia Plan discussed with: Patient, Oth Plan discussed with: Patient, Other (rn) My Orders My Orders Orders - SUZANNA SCOTT Procedure Category Date Status Time Pantoprazole PHA 11/08/25 In Process (Protonix) 22:00 Sucralfate Susp PHA 11/08/25 In Process (Carafate Susp) 17:00 Stool Bacterial [place] 11/08/25 Logged Culture 16:14 Stool Wbc LAB 11/08/25 Logged 16:14 Clostridium Difficile [place] 11/08/25 Logged Toxin 16:14 Metronidazole PHA 11/08/25 In Process 500mg/100ml (Flagyl 22:00 Record Request ED NURSING 11/08/25 Transmitted CC Plasma Assessment Blood Product Administration S: 0420 SUZANNA SCOTT RESIDENT Nov 09, 2025 10:40
--- NOTE | 2025-11-09 13:04 | DVHPNRES ---
Progress Note Date Seen: Nov 09, 2025 Resident Creating Document: SHELBI ALBERTS RESIDENT Medical Necessity Reason Pt with a Central, PICC or Fol: No Subjective Review of Systems This is a 60-year-old female with past medical history of hemorrhagic stroke in August 2025, liver cirrhosis, anemia, presented to the ER with chief complain of dizziness, vomiting, hypotension since 1 day. Patient is a [place]-speaking female, utilized friction paint machine tender for history taking. The patient started complaining of dizziness, described as "everything around me was spinning, accompanied with decreased/division. She was diagnosed with stroke in August this year and was concerned about a similar episode Patient's daughter measured her blood pressure during the episode, which was low. She also complained of vomiting and diarrhea with 1 day onset, associated with burning abdominal pain. She reported vomiting hourly, without hematemesis. Patient initially denied having diarrhea but on further probing she reported 4 episodes of diarrhea. Stools are described as soft, complained of small amount of blood seen on stool and on the toilet paper. She also reported vague history of dysuria and burning micturition 4 days ago. Patient is A&O x4 but somewhat of a poor historian. She denies loss of consciousness, weakness, fever, chills. Patient has significant past medical history of liver cirrhosis, currently not following up with a specialist due to insurance issues. She underwent a colonoscopy in the past, according to the patient the colonoscopy did not show acute abnormality. Patient had stroke in August 2025, with some residual generalized weakness. Patient denies recent travel, history of cancer, hepatitis. History corroborated with daughter, who added that the patient has recurrent UTIs in the past and her last colonoscopy was more than 2 years back. Patient's vitals show tachycardia and hypotension on arrival. Her labs revealed macrocytic anemia, thrombocytopenia, albumin. Labs were significant for elevated total bilirubin, AST, ALP, creatinine and lactic acid. Coagulation profile showed elevated PT, INR. Her urine analysis was positive for UTI. Toxicology screen and Hepatitis panel came out negative. CT head shows no acute abnormality. Previous hospitalization: August 2025 in a hospital in [facility] for stroke PMHx: Hemorrhagic stroke, liver cirrhosis, anemia PSHx: None reported Family history: Multiple family members with diabetes mellitus Social history: Quit alcohol (used for 30 years) in August 2025, reported using 5 beers occasionally (consumed weekly/monthly), never smoker, denies drug use. Lives in daughter. Uses walker for ambulation since August this year Home medication: Famotidine, furosemide, spironolactone, MiraLax, iron. Medication list obtained from daughter ([place] [phone]). Allergic history: No reported allergies 11/08/2025: Patient was examined at bedside. Patient reports improvement of symptoms. She is requiring vasopressor support intermittently to maintain her blood pressure. He received 1 bag of packed RBCs for hemoglobin of 6, monitoring H&H. In context of patient's cirrhosis, we will obtain a CT abdomen and consult GI. 11/09/2025: Patient was examined at bedside. No new complains. CT abdomen shows sequelae of retention, upper abdominal varices, gallbladder thickening without distention. GI on board, EGD scheduled for tomorrow. Patient will be downgraded to telemetry. Objective vital signs Vital Sign Date Time Temp Pulse Resp B/P (MAP) Pulse Ox O2 Delivery O2 Flow Rate FiO2 11/09/25 12:00 98.0 75 11 105/43 (63) 97 98.0 11/09/25 08:00 Room Air* 0 21 Total Intake and Output 11/08/25 11/08/25 11/09/25 15:00 23:00 07:00 Intake Total 37.5 ml 12.5 ml 450.0 ml Balance 37.5 ml 12.5 ml 450.0 ml medications Current Medications Medications Dose Ordered Sig/Johnathon Route Start Time Stop Time Status Last Admin Dose Admin Norepinephrine Bitartrate 250 ml @ 3.75 mls/hr Q24H IV 11/08/25 00:15 11/08/25 00:34 3.75 MLS/HR Cefepime HCl 50 ml @ 12.5 mls/hr Q12HR IV 11/08/25 10:00 11/09/25 07:44 12.5 MLS/HR Acetaminophen/ Hydrocodone Bitart 1 tab Q4HP PRN PO 11/08/25 03:45 Ondansetron HCl 4 mg Q4HP PRN IV 11/08/25 03:45 Acetaminophen 650 mg Q6HP PRN PO 11/08/25 03:45 Nitroglycerin 0.4 mg Q5MINP PRN SL 11/08/25 03:45 Morphine Sulfate 2 mg Q30M PRN IV 11/08/25 03:45 Pantoprazole Sodium 40 mg BID IV 11/08/25 22:00 11/09/25 07:43 40 MG Sucralfate 1 gm QID@0600,1130,1700,2200 PO 11/08/25 17:00 11/09/25 10:56 1 GM Metronidazole 100 ml @ 100 mls/hr Q8HR IV 11/08/25 22:00 11/09/25 05:33 100 MLS/HR Examination General: Patient alert and oriented in person, place and time. Patient following commands. HEENT: Scleral icterus. Normocephalic, atraumatic, moist mucous membranes Respiratory/pulmonary: Clear lungs bilaterally, vesicular murmurs present in almost all lung yao, no associated crackles or wheezes. Cardiovascular: Normal heart sounds S1 and S2 with no associated murmurs Abdomen: Hepatomegaly. Negative Mujica's sign. Abdomen nondistended, there is no pain to palpation in any of the abdominal quadrants, no palpable masses. Extremities: There is no peripheral edema present at the lower extremities. Skin: No rashes or pruritus, there is no sacral edema present at this time. Neurological: Intact cranial nerves with no focal neurologic deficits, normal motor and sensory strength. Rectal examination (done with nurse as fraud representative): No skin tags, hemorrhoids. Brown colored stool in rectal vault without blood. laboratory and microbiology Laboratory Tests 11/09/25 05:14 Test 11/09/25 05:14 Range/Units Serum Glucose 94 74-106 mg/dL Microbiology Date/Time Source Procedure Growth Status 11/08/25 01:45 Voided Urine Urine Culture - Preliminary Resulted 11/08/25 00:33 Blood Blood Culture - Preliminary NO GROWTH AFTER 24 HOURS OF INCUBATION. Resulted Problem List/Assessment/Plan Problem List/Assessment/Plan Neurology # History of hemorrhagic shock CT head negative for acute abnormality Cardiovascular # Hypovolemic shock, resolving # GI hemorrhage, possible # on a Lactic acidosis, resolving Holding Levophed Received 1 bag of pRBCs Holding off DVT prophylaxis with Lovenox, SCD ordered GI consulted for possible EGD SOB ordered Monitor H&H for possible transfusion Protonix IV b.i.d., Carafate 1 g p.o. q.i.d. Downgrading patient to telemetry Gastrointestinal # GI hemorrhage, possible # Possible variceal bleed Holding Levophed Received 1 bag of pRBCs Holding off DVT prophylaxis with Lovenox, SCD ordered GI on board CT abdomen shows cirrhosis with sequela of portal hypertension including upper abdominal varices. Diffuse gallbladder wall thickening without significant distention with possible cholelithiasis. Monitor H&H for possible transfusion IV Protonix b.i.d., Carafate 1 g p.o. q.i.d. 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 Child Knowles score 8 Ammonia levels WNL Genitourinary # Complicated UTI U/A: positive for UTI Blood culture, urine culture ordered Continue IV cefepime Low salt diet, maintain hydration Repeat BMP Infectious disease # Possible septic shock due to Complicated UTI, resolving # Acute colitis, possible Continue IV Flagyl q.8 Continue IV cefepime Preliminary blood culture negative Hematology/oncology # Macrocytic anemia, due to liver disease # Thrombocytopenia Continue CBC monitoring Peptic ulcer prophylaxis: Protonix DVT prophylaxis: SCD Critical care time 49 minutes excluding procedure. Code status discussed greater than 20 minutes: Full CODE STATUS. Family at bedside explained about the condition of the patient Plan discussed with Dr. Ohara Plan discussed with: Patient, Other (nurses) My Orders My Orders Orders - SHELBI ALBERTS RESIDENT Procedure Category Date Status Time *Gi [facility]astro [facility] CONS 11/08/25 Transmitted 14:31 Communication Order ORDERS 11/08/25 Transmitted 14:28 Transfer Orders XFER 11/08/25 Transmitted 14:28 Ct Ab Pel Wo Con-No CT 11/08/25 Resulted Oral Or Iv 14:31 Sequential ERIK 11/08/25 In Process Compression Device 16:19 Transfer Orders XFER 11/09/25 Transmitted 13:01 Molder Hand ORDERS 11/09/25 Transmitted 13:01 Complete Blood Count LAB 11/10/25 Verified 04:00 Comprehensive LAB 11/10/25 Verified Metabolic Panel 04:00 CC Plasma Assessment Blood Product Administration S: [id number] Date of Service: Nov 09, 2025 Billing Provider: MARINE OHARA MD Common Visit Codes: 21109-[id number] CARE 30-74 MIN SHELBI ALBERTS RESIDENT Nov 09, 2025 13:04 MARINE OHARA MD Nov 12, 2025 11:12
[2025-11-10] VITALS (14 sets, daily range): BP systolic 106–138; BP diastolic 44–72; PULSE 69–83; RESP 12–18; TEMP 97.1–98.5; O2SAT 95–99
[2025-11-10 06:00] LABS: Hemoglobin 9.8 g/dL (12.2-16.2)
[2025-11-10 06:02] LABS: Hematocrit 28.2 % (36.0-46.0); Mean Corpuscular Hemoglobin 35.6 pg (28.0-32.0); Mean Corpuscular Volume 102.7 fL (80.0-100.0); Nucleated Red Blood Cells % 0.1 %
[2025-11-10 06:27] LABS: Alanine Aminotransferase 26 U/L (7-40); Anion Gap 9 (5-15); BUN/Creatinine Ratio 9.3 (10.0-20.0); Blood Urea Nitrogen 11 mg/dL (9-23); Carbon Dioxide 21 mmol/L (20-31); Glucose 103 mg/dL (74-106); Potassium 3.9 mmol/L (3.5-5.1); Sodium 139 mmol/L (136-145); Total Protein 6.3 g/dL (5.7-8.2)
[2025-11-10 06:33] LABS: Albumin 2.1 g/dL (3.2-4.8); Alkaline Phosphatase 148 U/L (46-116); Bilirubin, Total 2.2 mg/dL (0.2-1.0); Calcium 8.3 mg/dL (8.7-10.4); Chloride 109 mmol/L (98-107)
--- NOTE | 2025-11-10 10:33 | DVHPNRES ---
Progress Note Date Seen: Nov 10, 2025 Resident Creating Document: SHELBI ALBERTS RESIDENT Medical Necessity Reason Pt with a Central, PICC or Fol: No Subjective Review of Systems This is a 60-year-old female with past medical history of hemorrhagic stroke in August 2025, liver cirrhosis, anemia, presented to the ER with chief complain of dizziness, vomiting, hypotension since 1 day. Patient is a [place]-speaking female, utilized patient service technician pst for history taking. The patient started complaining of dizziness, described as "everything around me was spinning, accompanied with decreased/division. She was diagnosed with stroke in August this year and was concerned about a similar episode Patient's daughter measured her blood pressure during the episode, which was low. She also complained of vomiting and diarrhea with 1 day onset, associated with burning abdominal pain. She reported vomiting hourly, without hematemesis. Patient initially denied having diarrhea but on further probing she reported 4 episodes of diarrhea. Stools are described as soft, complained of small amount of blood seen on stool and on the toilet paper. She also reported vague history of dysuria and burning micturition 4 days ago. Patient is A&O x4 but somewhat of a poor historian. She denies loss of consciousness, weakness, fever, chills. Patient has significant past medical history of liver cirrhosis, currently not following up with a specialist due to insurance issues. She underwent a colonoscopy in the past, according to the patient the colonoscopy did not show acute abnormality. Patient had stroke in August 2025, with some residual generalized weakness. Patient denies recent travel, history of cancer, hepatitis. History corroborated with daughter, who added that the patient has recurrent UTIs in the past and her last colonoscopy was more than 2 years back. Patient's vitals show tachycardia and hypotension on arrival. Her labs revealed macrocytic anemia, thrombocytopenia, albumin. Labs were significant for elevated total bilirubin, AST, ALP, creatinine and lactic acid. Coagulation profile showed elevated PT, INR. Her urine analysis was positive for UTI. Toxicology screen and Hepatitis panel came out negative. CT head shows no acute abnormality. Previous hospitalization: August 2025 in a hospital in [facility] for stroke PMHx: Hemorrhagic stroke, liver cirrhosis, anemia PSHx: None reported Family history: Multiple family members with diabetes mellitus Social history: Quit alcohol (used for 30 years) in August 2025, reported using 5 beers occasionally (consumed weekly/monthly), never smoker, denies drug use. Lives in daughter. Uses walker for ambulation since August this year Home medication: Famotidine, furosemide, spironolactone, MiraLax, iron. Medication list obtained from daughter ([place] [phone]). Allergic history: No reported allergies 11/08/2025: Patient was examined at bedside. Patient reports improvement of symptoms. She is requiring vasopressor support intermittently to maintain her blood pressure. He received 1 bag of packed RBCs for hemoglobin of 6, monitoring H&H. In context of patient's cirrhosis, we will obtain a CT abdomen and consult GI. 11/09/2025: Patient was examined at bedside. No new complains. CT abdomen shows sequelae of retention, upper abdominal varices, gallbladder thickening without distention. GI on board, EGD scheduled for tomorrow. Patient will be downgraded to telemetry. [id number]: Patient was seen at bedside. No new complaints, improvement in symptoms reported. Scheduled for EGD today. Objective vital signs Vital Sign Date Time Temp Pulse Resp B/P (MAP) Pulse Ox O2 Delivery O2 Flow Rate FiO2 11/10/25 09:00 98.5 75 16 106/50 (68) 97 98.5 11/09/25 20:00 Room Air* 0 21 Total Intake and Output 11/09/25 11/09/25 11/10/25 14:59 22:59 06:59 Intake Total 150.0 ml 500 ml 290 ml Balance 150.0 ml 500 ml 290 ml medications Current Medications Medications Dose Ordered Sig/Johnathon Route Start Time Stop Time Status Last Admin Dose Admin Cefepime HCl 50 ml @ 12.5 mls/hr Q12HR IV 11/08/25 10:00 11/10/25 10:19 12.5 MLS/HR Acetaminophen/ Hydrocodone Bitart 1 tab Q4HP PRN PO 11/08/25 03:45 Ondansetron HCl 4 mg Q4HP PRN IV 11/08/25 03:45 Acetaminophen 650 mg Q6HP PRN PO 11/08/25 03:45 Nitroglycerin 0.4 mg Q5MINP PRN SL 11/08/25 03:45 Morphine Sulfate 2 mg Q30M PRN IV 11/08/25 03:45 Pantoprazole Sodium 40 mg BID IV 11/08/25 22:00 12/19/25 10:20 40 MG Sucralfate 1 gm QID@0600,1130,1700,2200 PO 11/08/25 17:00 11/09/25 22:11 1 GM Metronidazole 100 ml @ 100 mls/hr Q8HR IV 11/08/25 22:00 11/10/25 06:06 100 MLS/HR Examination General: Patient alert and oriented in person, place and time. Patient following commands. HEENT: Scleral icterus. Normocephalic, atraumatic, moist mucous membranes Respiratory/pulmonary: Clear lungs bilaterally, vesicular murmurs present in almost all lung yao, no associated crackles or wheezes. Cardiovascular: Normal heart sounds S1 and S2 with no associated murmurs Abdomen: Hepatomegaly. Abdomen nondistended, there is no pain to palpation in any of the abdominal quadrants, no palpable masses. Extremities: There is no peripheral edema present at the lower extremities. Skin: No rashes or pruritus, there is no sacral edema present at this time. Neurological: Intact cranial nerves with no focal neurologic deficits, normal motor and sensory strength. laboratory and microbiology Laboratory Tests 11/10/25 05:10 Test 11/10/25 05:10 Range/Units Serum Glucose 103 74-106 mg/dL Microbiology Date/Time Source Procedure Growth Status 11/08/25 23:00 Nose MRSA Screen - Final Complete 11/08/25 01:45 Voided Urine Urine Culture - Preliminary Resulted 11/08/25 00:33 Blood Blood Culture - Preliminary NO GROWTH AFTER 48 HOURS OF INCUBATION. Resulted Problem List/Assessment/Plan Problem List/Assessment/Plan Neurology # History of hemorrhagic shock CT head negative for acute abnormality Cardiovascular # Hypovolemic shock, resolving # GI hemorrhage, possible # on a Lactic acidosis, resolving Holding Levophed Received 1 bag of pRBCs Holding off DVT prophylaxis with Lovenox, SCD ordered GI consulted for possible EGD SOB ordered Monitor H&H for possible transfusion Protonix IV b.i.d., Carafate 1 g p.o. q.i.d. Gastrointestinal # GI hemorrhage, possible # Possible variceal bleed Holding Levophed Received 1 bag of pRBCs Holding off DVT prophylaxis with Lovenox, SCD ordered GI on board CT abdomen shows cirrhosis with sequela of portal hypertension including upper abdominal varices. Diffuse gallbladder wall thickening without significant distention with possible cholelithiasis. Monitor H&H for possible transfusion IV Protonix b.i.d., Carafate 1 g p.o. q.i.d. EGD scheduled for today. Showed 2 cm sliding-type hiatal hernia with slightly irregular squamocolumnar junction. [id number] gastritis with multiple pre-pyloric antral gastric erosions and tiny ulcers. No varices were seen, no active bleeding and good bile drainage. 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 Child Knowles score 8 Ammonia levels WNL Genitourinary # Complicated UTI U/A: positive for UTI Blood culture, urine culture ordered Continue IV cefepime Low salt diet, maintain hydration Repeat BMP Infectious disease # Possible septic shock due to Complicated UTI, resolving # Acute colitis, possible Continue IV Flagyl q.8 Continue IV cefepime Blood culture negative Hematology/oncology # Macrocytic anemia, due to liver disease # Thrombocytopenia Continue CBC monitoring Peptic ulcer prophylaxis: Protonix DVT prophylaxis: SCD Care plan discussed with patient at bedside for more than 36 minutes Family at bedside explained about the condition of the patient Plan discussed with Dr. Pérez Plan discussed with: Patient, Daughter, Other (Nurses) My Orders My Orders Orders - SHELBI ALBERTS RESIDENT Procedure Category Date Status Time Transfer Orders XFER 11/09/25 Transmitted 13:01 Senior Mainframe Developer ORDERS 11/09/25 Transmitted 13:01 CC Plasma Assessment Blood Product Administration S: [id number] SHELBI ALBERTS RESIDENT Nov 10, 2025 10:33
[2025-11-10] MEDS: LIDOCAINE VISCOUS 2% 15ML UD ONE (13:12)
[2025-11-10] MEDS ORDERED: fentaNYL CITRATE 100 MCG/2 ML VL ONE (13:20)
[2025-11-10] MEDS ORDERED: MIDAZOLAM HCL 2MG/2ML 2ml VIAL (1mg/ml) ONE (13:20)
[2025-11-10] MEDS ORDERED: PROPOFOL 10 MG/ML 20 ML IV ONE (13:28)
--- NOTE | 2025-11-10 13:39 | DVHOP2 ---
Operative Report DATE OF OPERATION: 11/10/25 PROCEDURE: Upper Endoscopy with biopsy. PREOPERATIVE INDICATION: The patient is a 60 -year-old female undergoing endoscopy for anemia and Hemoccult-positive stool POSTOPERATIVE DIAGNOSES: 1. 2 cm sliding-type hiatal hernia with slightly irregular squamocolumnar junction no significant erosive esophagitis; no varices were seen 2. Wlxi-sw-eqblznnf gastritis with multiple pre-pyloric antral gastric erosions and tiny ulcers, no fresh or old blood in the upper GI 3. Otherwise normal examination of the 2nd and 3rd part of the duodenal with no active bleeding and good bile drainage PROCEDURE PERFORMED BY: Valarie Valencia GI NURSE: Demetrius SCOPE: Olympus videoendoscope. ASA CLASS: 3 PREOPERATIVE MEDICATIONS: Dr.Kakkes Elizabet PROCEDURE IN DETAIL: After obtaining an informed consent, the patient was placed on left lateral decubitus position. The patient was then sedated with the above medications. A bite block was placed between her teeth. The endoscope was then passed through the oropharynx, into the esophagus, and through the stomach and pylorus up to the second and third part of the duodenum. The endoscope was then withdrawn. The 2nd and 3rd part of the duodenum and the duodenal bulb were normal. Duodenal biopsies were obtained good bile drainage The pre-pyloric area antrum and body showed mnma-hi-ajevomud gastritis with multiple superficial pre-pyloric gastric erosions and tiny ulcers There was no fresh or old blood in the upper GI tract. Gastric biopsies were obtained. On retroflexion the fundus and cardia were normal. The endoscope was then withdrawn into distal esophagus where patient had a 2 cm sliding-type hiatal hernia with slightly irregular squamocolumnar junction no significant erosive esophagitis There were no varices. The remaining distal and proximal esophagus and oropharynx were unremarkable The patient tolerated the procedure well without difficulty. COMPLICATIONS : None SPECIMENS: Duodenal biopsies Gastric biopsies DISPOSITION: Transfer back to the floor Stable PLAN: 1. Await for biopsy result 2. Will place pt on Protonix 40 mg bid p.o. 3. Carafate suspension 1 g p.o. twice a day 4. DC aspirin NSAIDs smoking alcohol 5. Outpatient follow up with GI Services for ongoing management 6. Resume GI soft diet advance as tolerated VALARIE VALENCIA MD Nov 10, 2025 13:39
[2025-11-10] MEDS: ACETAMINOPHEN 325 MG TAB PO PRN (21:52)
--- NOTE | 2025-11-10 22:12 | DVHPN2 ---
Subjective DOS: 11/10/2025 Patient seen and examined at bedside. Breathing comfortably on room air. Overnight events reviewed. Changes from previous H/P or p: No Changes Objective Vitals Vital Signs Date Time Temp Pulse Resp B/P (MAP) Pulse Ox O2 Delivery O2 Flow Rate FiO2 11/10/25 21:00 98.5 74 18 138/44 (75) 98 98.5 11/10/25 20:00 Room Air* 0 21 Intake/Output Intake and Output 11/10/25 07:00 Intake Total 940.0 ml Balance 940.0 ml Intake Oral 740 ml IV Total 200.0 ml # Voids 2 Exam Gen.: Patient lying in bed in no apparent distress. Breathing on room air. Head: Normocephalic, atraumatic. Eyes: EOMI/PERRLA. Ears: Normal hearing. Normal anatomy. Neck/trachea: Trachea midline, supple. Nose: Normal external anatomy. Mouth: Moist mucous membranes. Chest: Decreased air entry bilaterally. No wheezing or rhonchi. Cardiovascular: Positive S1, positive S2. Regular rate and rhythm. Abdomen: Positive bowel sounds in all 4 quadrants. Soft, non-tender, non- distended. : Deferred. Rectal: Deferred. Skin: Warm, dry. Intact. Extremities: 2+ radial pulses bilaterally. No lower extremity edema. Neuro: Awake, alert, oriented x3. No gross motor or sensory deficits. Cranial nerves II through XII intact. Gait not assessed. Medications Current Medications Medications Dose Ordered Sig/Johnathon Route Start Time Stop Time Status Last Admin Dose Admin Cefepime HCl 50 ml @ 12.5 mls/hr Q12HR IV 11/08/25 10:00 11/10/25 21:52 12.5 MLS/HR Acetaminophen/ Hydrocodone Bitart 1 tab Q4HP PRN PO 11/08/25 03:45 Ondansetron HCl 4 mg Q4HP PRN IV 11/08/25 03:45 Acetaminophen 650 mg Q6HP PRN PO 11/08/25 03:45 11/10/25 21:52 650 MG Nitroglycerin 0.4 mg Q5MINP PRN SL 11/08/25 03:45 Morphine Sulfate 2 mg Q30M PRN IV 11/08/25 03:45 Pantoprazole Sodium 40 mg BID IV 11/08/25 22:00 11/10/25 21:43 40 MG Sucralfate 1 gm QID@0600,1130,1700,2200 PO 11/08/25 17:00 11/10/25 21:43 1 GM Metronidazole 100 ml @ 100 mls/hr Q8HR IV 11/08/25 22:00 11/10/25 21:52 100 MLS/HR Laboratory Results Laboratory Tests 11/10/25 05:10 Chemistry Test 11/10/25 05:10 Albumin 2.1 g/dL (3.2-4.8) L Calcium Level 8.3 mg/dL (8.7-10.4) L Total Protein 6.3 g/dL (5.7-8.2) LFT Test 11/10/25 05:10 Alanine Aminotransferase (ALT) 26 U/L (7-40) Alkaline Phosphatase 148 U/L (46-116) H Aspartate Amino Transferase (AST) 45 U/L (13-40) H Total Bilirubin 2.2 mg/dL (0.2-1.0) H Urinalysis Test 11/08/25 01:45 Urine Color Light-yellow (Yellow) Urine Clarity Turbid (Clear) H Urine pH 6.5 (5.0-9.0) Urine Specific [place] 1.007 (1.001-1.035) Urine Protein Negative (Negative) Urine Ketones Negative (Negative) Urine Blood Negative /uL (Negative) Urine Nitrite Negative (Negative) Urine Bilirubin Negative (Negative) Urine Urobilinogen Normal mg/dL (Negative) Urine Leukocyte Esterase 2+ /uL (Negative) Urine RBC None seen /hpf (0 - 4) Urine Microscopic WBC 13 /HPF (0-5) H Urine Squamous Epithelial Cells Few /hpf (<5) Urine Bacteria Few /hpf (None Seen) H Urine Glucose Normal mg/dL (Normal) Microbiology Microbiology Date/Time Source Procedure Growth Status 11/08/25 23:00 Nose MRSA Screen - Final Complete 11/08/25 01:45 Voided Urine Urine Culture - Final Complete 11/08/25 00:33 Blood Blood Culture - Preliminary NO GROWTH AFTER 48 HOURS OF INCUBATION. Resulted Assessment/Plan Assessment/Plan Impression: Sepsis Shock Liver cirrhosis Complicated UTI Gastrointestinal hemorrhage Anemia Thrombocytopenia Plan: On room air Supplemental oxygen PRN Titrate to keep O2 sats above 92%. Continue antibiotics EGD - Liver cirrhosis without active bleeding. No varices noted. GI recs appreciated. Protonix for GI ppx. Monitor renal function. Monitor electrolytes. Supplement as necessary. Monitor ins and outs. Monitor hemoglobin - 9.8 g/dL currently Transfuse if less than 7.0 g/dL. Monitor platelets d/t thrombocytopenia - 46 K currently DVT prophylaxis. Prognosis: Poor given patient's multiple co-morbidities. Rest of plan per hospitalist and other consultants. Thank you, Dr. Chang, for allowing me to participate in this patient's care. Further recommendations will depend on the patient's clinical course. Please do not hesitate to contact me if you have any questions or concerns. This medical document was created using an electronic medical record system with [employer] dictation system. Although these documentations are being carefully reviewed, there may still be some phonetic and typographical changes. The errors are purely typographical, due to imperfection on the software program, and do not reflect any compromise in the patient's medical care. Plan discussed with: Patient, Other (ERIKA Martinez) Visit Coding Pulmonary Billing Provider: MADISYN PAPPAS MD Date of Service if different f: Nov 10, 2025 Common Visit Codes: 93829-VZRAEITROD INP/OBS CARE(HIGH) MADISYN PAPPAS MD Nov 10, 2025 22:12
[2025-11-11 01:00] VITALS: BP 114/61; PULSE 90; RESP 18; TEMP 98.1; O2SAT 96
[2025-11-11 05:00] VITALS: BP 108/51; PULSE 77; RESP 18; TEMP 98.2; O2SAT 97
[2025-11-11 07:10] LABS: Alanine Aminotransferase 23 U/L (7-40); Anion Gap 11 (5-15); BUN/Creatinine Ratio 8.1 (10.0-20.0); Blood Urea Nitrogen 10 mg/dL (9-23); Carbon Dioxide 21 mmol/L (20-31); Potassium 3.9 mmol/L (3.5-5.1); Sodium 139 mmol/L (136-145); Total Protein 6.6 g/dL (5.7-8.2)
[2025-11-11 07:13] LABS: Albumin 2.2 g/dL (3.2-4.8); Alkaline Phosphatase 151 U/L (46-116); Bilirubin, Total 2.2 mg/dL (0.2-1.0); Calcium 8.5 mg/dL (8.7-10.4); Chloride 107 mmol/L (98-107); Glucose 71 mg/dL (74-106)
[2025-11-11 07:24] LABS: Hematocrit 28.8 % (36.0-46.0); Hemoglobin 10.0 g/dL (12.2-16.2); Mean Corpuscular Hemoglobin 36.1 pg (28.0-32.0); Mean Corpuscular Volume 103.8 fL (80.0-100.0); Nucleated Red Blood Cells % 0.4 %
[2025-11-11 08:00] VITALS: PULSE 71
[2025-11-11 09:00] VITALS: BP 121/67; PULSE 80; RESP 18; TEMP 98.6; O2SAT 94
[2025-11-11 13:00] VITALS: BP 135/68; PULSE 79; RESP 18; TEMP 98.5; O2SAT 97
[2025-11-11] MEDS ORDERED: CIP500T PO (13:12)
[2025-11-11] MEDS ORDERED: MET500T PO (13:12)
[2025-11-11 14:05] VITALS: BP 135/68; PULSE 79; RESP 18; TEMP 98.5; O2SAT 97
--- NOTE | 2025-11-11 15:50 | DVHDSRES ---
Discharge Summary Date of Admission Resident Creating Document: BRITTNI HUITRON RESIDENT Nov 08, 2025 at 03:44 Date of Discharge: Nov 11, 2025 Admitting Diagnosis Intractable nausea and vomiting with hypotension Labs/Diagnostic Data: Laboratory Results Test 11/11/25 04:52 11/08/25 11:05 11/08/25 10:11 11/08/25 10:00 White Blood Count 4.7 10^3/uL (4.4-10.8) Red Blood Count 2.78 10^6/uL (4.0-5.20) Hemoglobin 10.0 g/dL (12.2-16.2) Hematocrit 28.8 % (36.0-46.0) Mean Corpuscular Volume 103.8 fL (80.0-100.0) Mean Corpuscular Hemoglobin 36.1 pg (28.0-32.0) Mean Corpuscular Hemoglobin Concent 34.8 g/dL (32.0-36.0) Red Cell Distribution Width 18.0 % (11.8-14.3) Platelet Count 53 10^3/uL (140-450) Mean Platelet Volume 9.0 fL (6.9-10.8) Neutrophils (%) (Auto) 35.2 % (37.0-80.0) Lymphocytes (%) (Auto) 43.2 % (10.0-50.0) Monocytes (%) (Auto) 16.8 % (0.0-12.0) Eosinophils (%) (Auto) 4.1 % (0.0-7.0) Basophils (%) (Auto) 0.7 % (0.0-2.0) Neutrophils # (Auto) 1.6 10 ^3/uL (1.6-8.6) Lymphocytes # (Auto) 2.0 10 ^3/uL (0.4-5.4) Monocytes # (Auto) 0.8 10 ^3/uL (0-1.3) Eosinophils # (Auto) 0.2 10 ^3/uL (0-0.8) Basophils # (Auto) 0 10 ^3/uL (0-0.2) Nucleated Red Blood Cells 0.4 % Sodium Level 139 mmol/L (136-145) Potassium Level 3.9 mmol/L (3.5-5.1) Chloride Level 107 mmol/L (98-107) Carbon Dioxide Level 21 mmol/L (20-31) Anion Gap 11 (5-15) Blood Urea Nitrogen 10 mg/dL (9-23) Creatinine 1.23 mg/dL (0.550-1.02) Glomerular Filtration Rate Calc 50 mL/min (>90) BUN/Creatinine Ratio 8.1 (10.0-20.0) Serum Glucose 71 mg/dL (74-106) Calcium Level 8.5 mg/dL (8.7-10.4) Total Bilirubin 2.2 mg/dL (0.2-1.0) Aspartate Amino Transferase (AST) 41 U/L (13-40) Alanine Aminotransferase (ALT) 23 U/L (7-40) Alkaline Phosphatase 151 U/L (46-116) Total Protein 6.6 g/dL (5.7-8.2) Albumin 2.2 g/dL (3.2-4.8) Lactic Acid Level 1.2 mmol/L (0.4-2.0) Ammonia 28 umol/L (11-32) Ferritin 206.9 ng/mL (10-291) Vitamin B12 Level 1349 pg/mL (211-911) Folic Acid 21.57 ng/mL (>5.38) Hepatitis A IgM Antibody Negative Hepatitis B Surface Antigen Negative (Negative) Hepatitis B Core IgM Antibody Negative (Negative) Hepatitis C Antibody Negative (Negative) Test 11/08/25 01:57 11/08/25 01:51 11/08/25 01:45 11/08/25 00:25 Iron Level 146 ug/dL (50-170) Total Iron Binding Capacity 190 ug/dL (250-425) Percent Iron Saturation 76.8 % (15-50) Plasma/Serum Blood Alcohol < 3.0 mg/dL (<10) Prothrombin Time 16.5 sec (9.3-11.8) Prothrombin Time INR 1.63 (0.9-1.15) Urine Color Light-yellow (Yellow) Urine Clarity Turbid (Clear) Urine pH 6.5 (5.0-9.0) Urine Specific [place] 1.007 (1.001-1.035) Urine Protein Negative (Negative) Urine Ketones Negative (Negative) Urine Blood Negative /uL (Negative) Urine Nitrite Negative (Negative) Urine Bilirubin Negative (Negative) Urine Urobilinogen Normal mg/dL (Negative) Urine Leukocyte Esterase 2+ /uL (Negative) Urine RBC None seen /hpf (0 - 4) Urine Microscopic WBC 13 /HPF (0-5) Urine Squamous Epithelial Cells Few /hpf (<5) Urine Bacteria Few /hpf (None Seen) Urine Glucose Normal mg/dL (Normal) Urine Opiates Screen Neg (NEGATIVE) Urine Fentanyl Screen Neg (NEGATIVE) Urine Barbiturates Screen Neg (NEGATIVE) Urine Phencyclidine Screen Neg (NEGATIVE) Urine Amphetamines Screen Neg (NEGATIVE) Urine Benzodiazepines Screen Neg (NEGATIVE) Urine Cocaine Screen Neg (NEGATIVE) Urine Cannabinoids Screen Neg (NEGATIVE) Troponin I High Sensitivity 9 ng/L (</=34) Test 11/07/25 23:29 POC Glucose 137 mg/dl (70-106) Other Laboratory Tests 11/11/25 04:52 Brief Hx & Hospital Course: This is a 60-year-old female with past medical history of hemorrhagic stroke in August 2025, liver cirrhosis, anemia, presented to the ER with chief complain of dizziness, vomiting, hypotension since 1 day. Patient is a Mohawk-speaking female, utilized tree farmer for history taking. The patient started complaining of dizziness, described as "everything around me was spinning, accompanied with decreased/division. She was diagnosed with stroke in August this year and was concerned about a similar episode Patient's daughter measured her blood pressure during the episode, which was low. She also complained of vomiting and diarrhea with 1 day onset, associated with burning abdominal pain. She reported vomiting hourly, without hematemesis. Patient initially denied having diarrhea but on further probing she reported 4 episodes of diarrhea. Stools are described as soft, complained of small amount of blood seen on stool and on the toilet paper. She also reported vague history of dysuria and burning micturition 4 days ago. Patient is A&O x4 but somewhat of a poor historian. She denies loss of consciousness, weakness, fever, chills. Patient has significant past medical history of liver cirrhosis, currently not following up with a specialist due to insurance issues. She underwent a colonoscopy in the past, according to the patient the colonoscopy did not show acute abnormality. Patient had stroke in August 2025, with some residual generalized weakness. Patient denies recent travel, history of cancer, hepatitis. History corroborated with daughter, who added that the patient has recurrent UTIs in the past and her last colonoscopy was more than 2 years back. Patient's vitals show tachycardia and hypotension on arrival. Her labs revealed macrocytic anemia, thrombocytopenia, albumin. Labs were significant for elevated total bilirubin, AST, ALP, creatinine and lactic acid. Coagulation profile showed elevated PT, INR. Her urine analysis was positive for UTI. Toxicology screen and Hepatitis panel came out negative. CT head shows no acute abnormality. Previous hospitalization: August 2025 in a hospital in [facility] for stroke PMHx: Hemorrhagic stroke, liver cirrhosis, anemia PSHx: None reported Family history: Multiple family members with diabetes mellitus Social history: Quit alcohol (used for 30 years) in August 2025, reported using 5 beers occasionally (consumed weekly/monthly), never smoker, denies drug use. Lives in daughter. Uses walker for ambulation since August this year Home medication: Famotidine, furosemide, spironolactone, MiraLax, iron. Medication list obtained from daughter ([place] [phone]). Allergic history: No reported allergies Hospitalization course: Patient initially required vasopressor support with Levophed, was ultimately able to be weaned off of pressors by day 2 of hospitalization, patient also received 1 PRBC blood transfusion which improved hemoglobin from 6-10, H&H was monitored throughout and GI was taken on board. CT abdomen pelvis showed upper abdominal varices the patient was scheduled for EGD, which showed pglj-eg-[id number] gastritis with multiple pre-pyloric antral gastric erosions and tiny ulcers, no fresh or old blood in the upper GI tract. On the day of discharge, patient denied any further nausea and vomiting, was tolerating diet without any complaints, denied any symptoms of acute pain. PT evaluation was completed for the patient and patient was able to walk 100 ft, at the time of discharge patient was noted to have stable vital signs with temperature 98.2, heart rate 77, respiratory rate 18 saturating 97% on room air and blood pressure 135/68 with a map of 90. Her hospital course was uncomplicated. Patient was scheduled for an appointment with the discharge clinic as well as given strict instructions to follow up with GI in the outpatient clinic for biopsy as well as further management of her cirrhosis, patient demonstrated understanding. Consults/Reason for consult GI consult: For EGD to rule out esophageal varices Operations or Procedures DATE OF OPERATION: 11/10/25 PROCEDURE: Upper Endoscopy with biopsy. PREOPERATIVE INDICATION: The patient is a 60 -year-old female undergoing endoscopy for anemia and Hemoccult-positive stool POSTOPERATIVE DIAGNOSES: 1. 2 cm sliding-type hiatal hernia with slightly irregular squamocolumnar junction no significant erosive esophagitis; no varices were seen 2. Moyc-xv-vztrkmgf gastritis with multiple pre-pyloric antral gastric erosions and tiny ulcers, no fresh or old blood in the upper GI 3. Otherwise normal examination of the 2nd and 3rd part of the duodenal with no active bleeding and good bile drainage PROCEDURE PERFORMED BY: Kiersten Valencia GI NURSE: Demetrius SCOPE: Olympus videoendoscope. ASA CLASS: 3 PREOPERATIVE MEDICATIONS: Mac sedation, PROCEDURE IN DETAIL: After obtaining an informed consent, the patient was placed on left lateral decubitus position. The patient was then sedated with the above medications. A bite block was placed between her teeth. The endoscope was then passed through the oropharynx, into the esophagus, and through the stomach and pylorus up to the second and third part of the duodenum. The endoscope was then withdrawn. The 2nd and 3rd part of the duodenum and the duodenal bulb were normal. Duodenal biopsies were obtained good bile drainage The pre-pyloric area antrum and body showed qnwg-fv-fdminoni gastritis with multiple superficial pre-pyloric gastric erosions and tiny ulcers There was no fresh or old blood in the upper GI tract. Gastric biopsies were obtained. On retroflexion the fundus and cardia were normal. The endoscope was then withdrawn into distal esophagus where patient had a 2 cm sliding-type hiatal hernia with slightly irregular squamocolumnar junction no significant erosive esophagitis There were no varices. The remaining distal and proximal esophagus and oropharynx were unremarkable The patient tolerated the procedure well without difficulty. COMPLICATIONS : None SPECIMENS: Duodenal biopsies Gastric biopsies DISPOSITION: Transfer back to the floor Stable PLAN: 1. Await for biopsy result 2. Will place pt on Protonix 40 mg bid p.o. 3. Carafate suspension 1 g p.o. twice a day 4. DC aspirin NSAIDs smoking alcohol 5. Outpatient follow up with GI Services for ongoing management 6. Resume GI soft diet advance as tolerated EXAM: CT HEAD WITHOUT CONTRAST INDICATION: Headache TECHNIQUE: CT of the head without intravenous contrast. Radiation Dose : 1. Head: CT Dose: CTDI volume is 50.83 mGy. Dose-length product is 814.97 mGy*cm The dose indicators for CT are the volume Computed Tomography (CT) Dose Index (CTDIvol) and the Dose Length Product (DLP), and are measured in units of mGy and mGy-cm, respectively. These indicators are not patient dose, but values generated from the CT scanner acquisition factors. The report includes radiation exposure data for exposures received during this examination. COMPARISON: None FINDINGS: There is no evidence of acute intracranial hemorrhage, extra-axial collection, mass effect, midline shift, herniation or hydrocephalus. The ventricles, sulci and cisterns are age appropriate. The kelly-white differentiation is intact. Patchy periventricular and subcortical white matter hypoattenuation is nonspecific but may be related to small vessel ischemic disease. The visualized paranasal sinuses and mastoid air cells are clear. The surrounding soft tissues and osseous structures are unremarkable. IMPRESSION: 1. No acute intracranial abnormality. Radiation optimization: All CT scans at this facility use at least one of these dose optimization techniques: automated exposure control mA and/or kV adjustment per patient size (includes targeted exams where dose is matched to clinical indication) or iterative reconstruction. EXAM: CT CT AB PEL WO CON-NO ORAL OR IV HISTORY: liver cirrhosis r/o structural abdominal d/o Comparison Study: None Exam Date: 11/08/2025 02:49 PM Radiation Dose Information: CT Dose: CTDI volume is 8.6 mGy. Dose-length product is 437 mGy*cm TECHNIQUE: Multidetector CT of the abdomen and pelvis was performed. Imaging was performed without IV contrast. Axial, coronal and sagittal multiplanar reformats were obtained from the axial data set by the technologist. FINDINGS: Lack of intravenous contrast compromises evaluation of perfusion and for isodense lesions. Lower chest: Bibasilar atelectasis/scarring. Liver: Diffusely nodular in contour Biliary system: Diffuse gallbladder wall thickening without significant distention. Possible Underlying stones. Spleen: Unremarkable Pancreas: Unremarkable. Adrenals: Unremarkable. Kidneys and ureters: No hydronephrosis Bowel: No obstruction. Mild hyperdensity in the calices may represnt early medullary nephrocalcinosis. Bladder: Unremarkable Reproductive organs: No abnormal mass. Lymph nodes: Unremarkable. Peritoneum: Unremarkable Vessels: Patency not evaluated on this noncontrast study. Enlarged gastroesophageal and upper abdominal varices. Bones and soft tissue: No aggressive osseous lesion IMPRESSION: Cirrhosis with sequela of portal hypertension including upper abdominal varices. No significant ascites. Diffuse gallbladder wall thickening without significant distention with possible cholelithiasis. This is favored to be reactive. If there is concern for acute cholecystitis, HIDA scan can be obtained for further evaluation. Condition at Discharge: Stable Final Diagnosis/Problems List Acute complicated UTI Acute infectious versus inflammatory colitis Sepsis due to above, POA History of hemorrhagic stroke Questionable upper GI bleed Septic shock versus hypovolemic shock Ruled out esophageal varices Liver cirrhosis Portal hypertension Cholelithiasis Microcytic anemia Thrombocytopenia Discharge Disposition: Home Discharge Instruct/Medications Diet: Cardiac 2g Na,low cholest Activity: No Restrictions, As Tolerated Follow Up/Referral: Please follow up in the discharge clinic Please follow up with Gastroenterology in the outpatient clinic Medications: Metronidazole 500 mg t.i.d. Ciprofloxacin 500 mg Scheduled Ciprofloxacin Hydrochloride (Ciprofloxacin HCl), 500 MG PO BID Metronidazole (Metronidazole), 500 MG PO TID Discharge Statement: "Patient was advised to return to the ER or call 911 if any headaches, dizziness, shortness of breath, chest pain, abdominal pain, bleeding, fevers, or worsening of medical condition. Patient was counseled about treatment plan, medications, possible side effects, patientverbalized understanding. All questions were answered to the best of my ability. This discharge took greater then 30 minutes in planning, reviewing documentation, counseling the patient, and discussing with other team members." ASSESSMENT ASSESSMENT Assessment # History of hemorrhagic shock CT head negative for acute abnormality Cardiovascular # Hypovolemic shock, resolving # GI hemorrhage, possible # on a Lactic acidosis, resolving Holding Levophed Received 1 bag of pRBCs Holding off DVT prophylaxis with Lovenox, SCD ordered GI consulted for possible EGD SOB ordered Monitor H&H for possible transfusion Protonix IV b.i.d., Carafate 1 g p.o. q.i.d. Gastrointestinal # GI hemorrhage, possible # Possible variceal bleed Holding Levophed Received 1 bag of pRBCs Holding off DVT prophylaxis with Lovenox, SCD ordered GI on board CT abdomen shows cirrhosis with sequela of portal hypertension including upper abdominal varices. Diffuse gallbladder wall thickening without significant distention with possible cholelithiasis. Monitor H&H for possible transfusion IV Protonix b.i.d., Carafate 1 g p.o. q.i.d. EGD scheduled for today. Showed 2 cm sliding-type hiatal hernia with slightly irregular squamocolumnar junction. Cztw-mn-wxzpnqic gastritis with multiple pre-pyloric antral gastric erosions and tiny ulcers. No varices were seen, no active bleeding and good bile drainage. 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 Child Knowles score 8 Ammonia levels WNL Genitourinary # Complicated UTI U/A: positive for UTI Blood culture, urine culture ordered Continue IV cefepime Low salt diet, maintain hydration Repeat BMP Infectious disease # Possible septic shock due to Complicated UTI, resolving # Acute colitis, possible Continue IV Flagyl q.8 Continue IV cefepime Blood culture negative Hematology/oncology # Macrocytic anemia, due to liver disease # Thrombocytopenia Visit Coding STANDARD RES Billing Provider: MADISYN PAPPAS MD Date of Service if different f: Nov 11, 2025 Common Visit Codes: 47091-MDU/OBS DISCH DAY >30min BRITTNI HUITRON RESIDENT Nov 11, 2025 15:50
--- NOTE | 2025-11-11 23:00 | DVHPN2 ---
Subjective DOS: 11/11/2025 Patient seen and examined at bedside. Breathing comfortably on room air. Overnight events reviewed. Changes from previous H/P or p: No Changes Objective Vitals Vital Signs Date Time Temp Pulse Resp B/P (MAP) Pulse Ox O2 Delivery O2 Flow Rate FiO2 11/11/25 14:05 98.5 79 18 97 11/11/25 13:00 135/68 (90) 11/11/25 08:00 Room Air* 0 21 Intake/Output Intake and Output 11/11/25 07:00 Intake Total 1610.0 ml Balance 1610.0 ml Intake Oral 1200 ml IV Total 410.0 ml # Voids 2 Exam Gen.: Patient lying in bed in no apparent distress. Breathing on room air. Head: Normocephalic, atraumatic. Eyes: EOMI/PERRLA. Ears: Normal hearing. Normal anatomy. Neck/trachea: Trachea midline, supple. Nose: Normal external anatomy. Mouth: Moist mucous membranes. Chest: Decreased air entry bilaterally. No wheezing or rhonchi. Cardiovascular: Positive S1, positive S2. Regular rate and rhythm. Abdomen: Positive bowel sounds in all 4 quadrants. Soft, non-tender, non- distended. : Deferred. Rectal: Deferred. Skin: Warm, dry. Intact. Extremities: 2+ radial pulses bilaterally. No lower extremity edema. Neuro: Awake, alert, oriented x3. No gross motor or sensory deficits. Cranial nerves II through XII intact. Gait not assessed. Laboratory Results Laboratory Tests 11/11/25 04:52 Chemistry Test 11/11/25 04:52 Albumin 2.2 g/dL (3.2-4.8) L Calcium Level 8.5 mg/dL (8.7-10.4) L Total Protein 6.6 g/dL (5.7-8.2) LFT Test 11/11/25 04:52 Alanine Aminotransferase (ALT) 23 U/L (7-40) Alkaline Phosphatase 151 U/L (46-116) H Aspartate Amino Transferase (AST) 41 U/L (13-40) H Total Bilirubin 2.2 mg/dL (0.2-1.0) H Urinalysis Test 11/08/25 01:45 Urine Color Light-yellow (Yellow) Urine Clarity Turbid (Clear) H Urine pH 6.5 (5.0-9.0) Urine Specific [place] 1.007 (1.001-1.035) Urine Protein Negative (Negative) Urine Ketones Negative (Negative) Urine Blood Negative /uL (Negative) Urine Nitrite Negative (Negative) Urine Bilirubin Negative (Negative) Urine Urobilinogen Normal mg/dL (Negative) Urine Leukocyte Esterase 2+ /uL (Negative) Urine RBC None seen /hpf (0 - 4) Urine Microscopic WBC 13 /HPF (0-5) H Urine Squamous Epithelial Cells Few /hpf (<5) Urine Bacteria Few /hpf (None Seen) H Urine Glucose Normal mg/dL (Normal) Microbiology Microbiology Date/Time Source Procedure Growth Status 11/08/25 23:00 Nose MRSA Screen - Final Complete 11/08/25 01:45 Voided Urine Urine Culture - Final Complete 11/08/25 00:33 Blood Blood Culture - Preliminary NO GROWTH AFTER 72 HOURS OF INCUBATION. Resulted Assessment/Plan Assessment/Plan Impression: Sepsis Shock Liver cirrhosis Complicated UTI Gastrointestinal hemorrhage Anemia Thrombocytopenia Events: Breathing on room air Supplemental oxygen PRN Continue antibiotics Continue Protonix, sucralfate. Hemoglobin stable at 10.0 g/dL. Monitor platelets - 71 K. T-bili trending down. Physical Therapy evaluation Labs and imaging reviewed. Rest of plan as noted below. Plan: Supplemental oxygen PRN Titrate to keep O2 sats above 92%. Continue antibiotics EGD - Liver cirrhosis without active bleeding. No varices noted. GI recs appreciated. Protonix for GI ppx. Monitor renal function. Monitor electrolytes. Supplement as necessary. Monitor ins and outs. Monitor hemoglobin Transfuse if less than 7.0 g/dL. Monitor platelets d/t thrombocytopenia DVT prophylaxis. Prognosis: Poor given patient's multiple co-morbidities. Rest of plan per hospitalist and other consultants. Thank you, Dr. Chang, for allowing me to participate in this patient's care. Further recommendations will depend on the patient's clinical course. Please do not hesitate to contact me if you have any questions or concerns. This medical document was created using an electronic medical record system with [employer] system. Although these documentations are being carefully reviewed, there may still be some phonetic and typographical changes. The errors are purely typographical, due to imperfection on the software program, and do not reflect any compromise in the patient's medical care. Plan discussed with: Patient, Other (ERIKA Linton) Visit Coding Pulmonary Billing Provider: MADISYN PAPPAS MD Date of Service if different f: Nov 11, 2025 Common Visit Codes: [id number] INP/OBS CARE(HIGH) MADISYN PAPPAS MD Nov 11, 2025 23:00
== END 2025-11-11 14:55 | disposition home or self-care (01) | DRG 871 ==
LOC: EDBD 23:09 → ER 23:09 → OVERFLOW 11-08 03:44 → DOU 11-08 23:08 → TELE-CENTR 11-09 18:05
PROVIDERS: ADMIT Internal Medicine Pulmonary Disease; ATTEND Internal Medicine Pulmonary Disease
PROC: 30233N1 Transfusion of Nonautologous Red Blood Cells into Peripheral Vein, Percutaneous Approach (ICD-10-PCS; principal; 2025-11-08)
PROC: 0DB98ZX Excision of Duodenum, Via Natural or Artificial Opening Endoscopic, Diagnostic (ICD-10-PCS; 2025-11-10)
PROC: 0DB68ZX Excision of Stomach, Via Natural or Artificial Opening Endoscopic, Diagnostic (ICD-10-PCS; 2025-11-10)
DX: A41.9 Sepsis, unspecified organism (principal); R65.21 Severe sepsis with septic shock; N39.0 Urinary tract infection, site not specified; K76.6 Portal hypertension; D64.9 Anemia, unspecified; I10 Essential (primary) hypertension; A09 Infectious gastroenteritis and colitis, unspecified; K74.60 Unspecified cirrhosis of liver; F10.90 Alcohol use, unspecified, uncomplicated; Y90.9 Presence of alcohol in blood, level not specified; K76.0 Fatty (change of) liver, not elsewhere classified; K80.20 Calculus of gallbladder without cholecystitis without obstruction; K44.9 Diaphragmatic hernia without obstruction or gangrene; Z82.49 Family history of ischemic heart disease and other diseases of the circulatory system; Z86.73 Personal history of transient ischemic attack (TIA), and cerebral infarction without residual deficits; Z83.3 Family history of diabetes mellitus
CPT/HCPCS: 36415; 36430; 43239; 74176; 80053; 80074; 80307; 80320; 81001; 82140; 82607; 82728; 82746; 82962; 83540; 83550; 83605; 84484; 85014; 85018; 85025; 85610; 86850; 86900; 86901; 86920; 87040; 87081; 87086; 96361; 96365; 97162; G0378; J1100; J2250; J2470; J2704; J3430; J3490